=== PATIENT | female | born 1960 | race Caucasian/White ===

== ENCOUNTER 2017-07-23 17:57 | Inpatient (IN) | payer MEDICARE, MEDICAID ==
[2017-07-23] MEDS ORDERED: IPRATROPIUM/ALBUTEROL 0.5-2.5 MG/3 ML AMPUL NEB ONE ×2 (18:25→20:39)
[2017-07-23 18:34] LABS: HEMATOCRIT 35.9 % (36.0-47.0); HEMOGLOBIN 12.2 g/dL (12.0-15.5); MEAN CORPUSCULAR HEMOGLOBIN 33.7 pg (27.0-33.4); MEAN CORPUSCULAR HGB CONC 33.9 g/dL (32.0-36.0); MEAN CORPUSCULAR VOLUME 100 fl (80-97); PLATELET COUNT 216 10^3/uL (150-450); RED BLOOD COUNT 3.61 10^6/uL (3.72-5.28); RED CELL DISTRIBUTION WIDTH 13.4 % (11.5-14.0); WHITE BLOOD COUNT 27.7 10^3/uL (4.0-10.5)
--- NOTE | 2017-07-23 18:47 | ER Document Report ---
ED Respiratory Problem - General Chief Complaint: Shortness Of Breath Stated Complaint: RESPIRATORY DISTRESS Time Seen by Provider: 07/23/17 18:03 Mode of Arrival: Ambulatory Information source: Patient Notes: 57 years old female with a history of severe COPD, still smoking, presents today with difficulty in breathing and wheezing coughing largely dry cough. And having lower anterior chest wall pain on and off. Denies any fever chills, denies any other constitutional symptoms. TRAVEL OUTSIDE OF THE [place] IN LAST 30 DAYS: No - Related Data Allergies/Adverse Reactions: Penicillins Allergy (Severe, Verified 03/22/16 15:29) BREATHING DIFFICULTY Past Medical History - Social History Smoking Status: Current Every Day Smoker Family History: Reviewed & Not Pertinent Patient has suicidal ideation: No Patient has homicidal ideation: No - Past Medical History Cardiac Medical History: Denies: Hx Pulmonary Embolism Pulmonary Medical History: Reports: Hx COPD Denies: Hx Asthma, Hx Bronchitis, Hx Pneumonia, Hx Respiratory Failure, Hx Sleep Apnea, Hx Tuberculosis Neurological Medical History: Reports: Hx Seizures - last seizure approx 2.5 years ago (unknown etiology). Denies: Hx Cerebrovascular Accident Endocrine Medical History: Reports: Hx Hypothyroidism. Denies: Hx Graves' Disease, Hx Hyperthyroidism Renal/ Medical History: Denies: Hx Peritoneal Dialysis Malignancy Medical History: Denies: Hx Lung Cancer GI Medical History: Reports: Hx Gastroesophageal Reflux Disease - OTC meds PRN. Denies: Hx Crohn's Disease, Hx Hiatal Hernia, Hx Irritable Bowel, Hx Liver Failure, Hx Pancreatitis, Hx Ulcer Musculoskeltal Medical History: Reports Hx Arthritis, Denies Hx Fibromyalgia, Denies Hx Multiple Sclerosis, Denies Hx Muscular Dystrophy Psychiatric Medical History: Reports: Hx Bipolar Disorder - Dx'ed approx 4 years ago, Hx Depression - and anxiety Denies: Hx Dementia, Hx Post Traumatic Stress Disorder, Hx Schizophrenia Traumatic Medical History: Reports: Hx Fractures - LT wrist, cast application only Infectious Medical History: Denies: Hx HIV Past Surgical History: Reports: Hx Appendectomy - @ age [age] years old, Hx Hysterectomy - SHARIF BSO , Hx Orthopedic Surgery. Denies: Hx Bowel Surgery , Hx Section, Hx Cholecystectomy, Hx Colostomy, Hx Coronary Artery Bypass Graft, Hx Gastric Bypass Surgery, Hx Herniorrhaphy, Hx Mastectomy, Hx Pacemaker, Hx Tonsillectomy, Hx Tubal Ligation - Immunizations Hx Diphtheria, Pertussis, Tetanus Vaccination: No Hx Pneumococcal Vaccination: 10/16/11 Review of Systems - Review of Systems Notes: REVIEW OF SYSTEMS: CONSTITUTIONAL : Denies fever, chills, or sweats. Denies recent illness. EENT: Denies eye, ear, throat, or mouth pain or symptoms. Denies nasal or sinus congestion or discharge. Denies throat, tongue, or mouth swelling or difficulty swallowing. CARDIOVASCULAR: Denies chest pain. Denies palpitations or racing or irregular heart beat. Denies ankle edema. RESPIRATORY: GASTROINTESTINAL: Denies abdominal pain or distention. Denies nausea, vomiting , or diarrhea. Denies blood in vomitus, stools, or per rectum. Denies black, tarry stools. Denies constipation. GENITOURINARY: Denies difficulty urinating, painful urination, burning, frequency, blood in urine, or discharge. FEMALE GENITOURINARY: Denies vaginal bleeding, heavy or abnormal periods, irregular periods. Denies vaginal discharge or odor. MUSCULOSKELETAL: Denies back or neck pain or stiffness. Denies joint pain or swelling. SKIN: Denies rash, lesions or sores. HEMATOLOGIC : Denies easy bruising or bleeding. LYMPHATIC: Denies swollen, enlarged glands. NEUROLOGICAL: Denies confusion or altered mental status. Denies passing out or loss of consciousness. Denies dizziness or lightheadedness. Denies headache. Denies weakness or paralysis or loss of use of either side. Denies problems with gait or speech. Denies sensory loss, numbness, or tingling. Denies seizures. PSYCHIATRIC: Denies anxiety or stress. Denies depression, suicidal ideation, or homicidal ideation. ALL OTHER SYSTEMS REVIEWED AND NEGATIVE. PHYSICAL EXAMINATION: GENERAL: Appears much older than for her age, cachectic, Not in any major respiratory distress. HEAD: Atraumatic, normocephalic. EYES: Pupils equal round and reactive to light, extraocular movements intact, conjunctiva are normal. ENT: Nares patent, oropharynx clear without exudates. Moist mucous membranes. NECK: Normal range of motion, supple without lymphadenopathy LUNGS: Bilaterally decreased breath sounds, no obvious rales, but scattered mild wheezes throughout the lung gonzalez. HEART: Regular rate and rhythm without murmurs ABDOMEN: Soft, nontender, nondistended abdomen. No guarding, no rebound. No masses appreciated. Female : deferred Musculoskeletal: Normal range of motion, no pitting or edema. No cyanosis. NEUROLOGICAL: Cranial nerves grossly intact. Normal speech, normal gait. Normal sensory, motor exams PSYCH: Normal mood, normal affect. SKIN: Warm, Dry, normal turgor, no rashes or lesions noted. Dictation was performed using [employer] voice recognition software as per history of complain Physical Exam - Vital signs Vitals: Temp Pulse Resp BP Pulse Ox 98.6 F 110 H 22 H 114/72 94 07/23/17 18:05 07/23/17 18:05 07/23/17 18:05 07/23/17 18:05 07/23/17 18:05 Course - Re-evaluation Re-evalutation: 07/23/17 22:16 Lab report as well as x-ray report was reviewed with patient. Discussed with the hospitalist and currently being admitted for pneumonia and COPD exacerbation. - Vital Signs Vital signs: Temp Pulse Resp BP Pulse Ox 98.6 F 110 H 17 115/65 94 07/23/17 18:05 07/23/17 18:05 07/23/17 19:01 07/23/17 19:00 07/23/17 19:01 - Laboratory Result Diagrams: 07/23/17 18:14 07/23/17 18:14 Laboratory results interpreted by me: 07/23/17 07/23/17 18:14 18:14 WBC 27.7 H RBC 3.61 L Hct 35.9 L MCV 100 H MCH 33.7 H Seg Neuts % (Manual) 82 H Band Neutrophils % 13 H Lymphocytes % (Manual) 4 L Monocytes % (Manual) 1 L Abs Neuts (Manual) 26.3 H Sodium 133.0 L Potassium 3.2 L Carbon Dioxide 17 L Glucose 144 H Total Protein 5.5 L Albumin 2.9 L - EKG Interpretation by Wy EKG shows normal: Sinus rhythm Rate: Tachycardia - Sinus tach at 107 bpm normal axis no acute ST elevation ST depression T-wave inversion noted. Discharge - Discharge Clinical Impression: COPD exacerbation Pneumonia Qualifiers: Pneumonia type: due to unspecified organism Laterality: right Lung location: lower lobe of lung Qualified Code(s): J18.1 - Lobar pneumonia, unspecified organism Condition: Serious Disposition: ADMITTED INPATIENT Admitting Provider: Hospitalist Unit Admitted: IMCU Referrals: MEGHAN,GRICELDA, MD [Primary Care Provider] - Follow up as needed
[2017-07-23 18:48] LABS: ALANINE AMINOTRANSFERASE 26 U/L (9-52); ALBUMIN 2.9 g/dL (3.5-5.0); ALKALINE PHOSPHATASE 118 U/L (38-126); ANION GAP 12 (5-19); ASPARTATE AMINO TRANSFERASE 15 U/L (14-36); BILIRUBIN,DIRECT 0.3 mg/dL (0.0-0.4); BILIRUBIN,TOTAL 0.3 mg/dL (0.2-1.3); BLOOD UREA NITROGEN 19 mg/dL (7-20); CALCIUM 8.9 mg/dL (8.4-10.2); CARBON DIOXIDE 17 mmol/L (22-30); CHLORIDE 104 mmol/L (98-107); GLUCOSE 144 mg/dL (75-110); POTASSIUM 3.2 mmol/L (3.6-5.0); TOTAL PROTEIN 5.5 g/dL (6.3-8.2)
[2017-07-23 18:49] LABS: ABSOLUTE LYMPHOCYTES# (MANUAL) 1.1 10^3/uL (0.5-4.7); ABSOLUTE MONOCYTES # (MANUAL) 0.3 10^3/uL (0.1-1.4); ABSOLUTE NEUTROPHILS# (MANUAL) 26.3 10^3/uL (1.7-8.2); BASOPHILS % (MANUAL) 0 % (0-2); EOSINOPHILS % (MANUAL) 0 % (0-6); LYMPHOCYTES % (MANUAL) 4 % (13-45); MONOCYTES % (MANUAL) 1 % (3-13); SEGMENTED NEUTROPHILS % (MAN) 82 % (42-78); TOTAL CELLS COUNTED 100
[2017-07-23 18:51] LABS: PLATELET COMMENT ADEQUATE
[2017-07-23 18:52] LABS: BAND NEUTROPHILS % (MANUAL) 13 % (3-5)
[2017-07-23 19:00] LABS: NT PRO BNP 503 pg/mL (5-900)
[2017-07-23 19:01] LABS: CREATINE KINASE MB < 0.22 ng/mL (<4.55); TROPONIN I < 0.012 ng/mL
--- NOTE | 2017-07-23 19:23 | RADIOLOGY REPORT (SQ) ---
EXAM DESCRIPTION: CHEST SINGLE VIEW COMPLETED DATE/TIME: 07/23/2017 7:15 pm REASON FOR STUDY: SOB COMPARISON: 03/22/2016 EXAM PARAMETERS: NUMBER OF VIEWS: One view. TECHNIQUE: Single frontal radiographic view of the chest acquired. RADIATION DOSE: NA LIMITATIONS: None. FINDINGS: LUNGS AND PLEURA: Extensive opacity at the left base. Minimal opacity in the right upper lobe. Flattened hemidiaphragms. MEDIASTINUM AND HILAR STRUCTURES: No masses. Contour normal. HEART AND VASCULAR STRUCTURES: Heart normal in size. Normal vasculature. BONES: Scoliosis. HARDWARE: None OTHER: No other significant finding. IMPRESSION: Left lower lobe and right upper lobe pneumonia. TECHNICAL DOCUMENTATION: JOB ID: [id number] [employer]- All Rights Reserved
[2017-07-23] MEDS ORDERED: LEVOFLOXACIN 750 MG/D5W RTU 750 MG/150 ML RTUPB IV SCH (22:00)
--- NOTE | 2017-07-23 22:08 | EKG REPORT ---
SEVERITY:- ABNORMAL ECG - SINUS TACHYCARDIA MULTIPLE ATRIAL PREMATURE COMPLEXES CONSIDER LEFT VENTRICULAR HYPERTROPHY : Confirmed by: Marino Quinones 23-Jul-2017 22:07:37
[2017-07-23] MEDS ORDERED: CHLORPHENIRAMINE MALEATE 4 MG TABLET PO ONE (22:17)
[2017-07-23] MEDS ORDERED: IPRATROPIUM/ALBUTEROL 0.5-2.5 MG/3 ML AMPUL NEB PRN (22:17)
[2017-07-23] MEDS ORDERED: ACETAMINOPHEN 325 MG TABLET PO PRN (22:18)
[2017-07-23] MEDS ORDERED: DOCUSATE SODIUM 100 MG CAPSULE PO PRN (22:22)
[2017-07-23] MEDS ORDERED: CEFEPIME 2 GM/D5W RTU 50 ML IV SCH (22:30)
[2017-07-23] MEDS ORDERED: VANCOMYCIN HCL 1,000 MG in DEXTROSE 5%-WATER 250 ML IV ONE (22:45)
[2017-07-23] MEDS ORDERED: VANCOMYCIN HCL 0 MG in DEXTROSE 5%-WATER 250 ML IV NR (22:45)
[2017-07-23] MEDS ORDERED: FLUTICASONE NASAL SPRAY 50 MCG/SPRY 120 SPRAY/16 GM NASL ONE (23:00)
[2017-07-24] MEDS ORDERED: VANCOMYCIN HCL INJ 1000 MG VIAL ONE (00:26)
[2017-07-24] MEDS ORDERED: ONDANSETRON HCL INJ/PF 4 MG/2 ML SDV IV ONE (00:30)
[2017-07-24] MEDS: IPRATROPIUM/ALBUTEROL 0.5-2.5 MG/3 ML AMPUL NEB SCH ×4 (01:43→20:50)
[2017-07-24] MEDS: NORMAL SALINE 1000 ML 1,000 ML IV PRN ×3 (03:00→18:44)
--- NOTE | 2017-07-24 04:19 | RADIOLOGY REPORT (SQ) ---
EXAM DESCRIPTION: CT CHEST WITHOUT CONTRAST CLINICAL HISTORY: weight loss COMPARISON: Chest x-ray 07/23/2017 TECHNIQUE: CT of the chest without IV contrast. FINDINGS: Chest: Visualized thyroid gland is unremarkable. Great vessels have normal anatomic configuration. No cardiomegaly, pericardial effusion, or coronary artery atherosclerosis. No definite mediastinal lymphadenopathy. No abnormalities of visualized esophagus. Lung windows demonstrate centrilobular emphysematous changes. Left lower lobe consolidation and right upper lobe consolidation. Peripheral nodular opacities in the right lung base which are somewhat platelike likely representing atelectasis. Pleural thickening of the bilateral lung apices. There are scattered areas of groundglass and interstitial opacities involving the right lower lobe. No abnormalities of the visualized liver, spleen, kidneys, or adrenal glands. Degenerative change of the spine. DLP: 171.47 mGy-cm IMPRESSION: 1. Left basilar airspace consolidation concerning for pneumonia. Continued follow-up recommended to confirm resolution. 2. Scattered groundglass and interstitial opacities along the right upper lobe pleural surface and in the right lower lobe likely related to chronic interstitial lung disease. Follow-up CT in 6 months to document stability recommended. This exam was performed according to our departmental dose-optimization program, which includes automated exposure control, adjustment of the mA and/or kV according to patient size and/or use of iterative reconstruction technique.
[2017-07-24] MEDS ORDERED: POTASSI CL 20 MEQ/50 ML RIDER 20 MEQ/50 ML RTUPB IV SCH ×2 (04:45→08:30)
[2017-07-24 04:54] LABS: HEMATOCRIT 36.9 % (36.0-47.0); HEMOGLOBIN 12.6 g/dL (12.0-15.5); MEAN CORPUSCULAR HEMOGLOBIN 33.5 pg (27.0-33.4); MEAN CORPUSCULAR VOLUME 99 fl (80-97); PLATELET COUNT 214 10^3/uL (150-450); RED BLOOD COUNT 3.75 10^6/uL (3.72-5.28); RED CELL DISTRIBUTION WIDTH 13.9 % (11.5-14.0); WHITE BLOOD COUNT 29.5 10^3/uL (4.0-10.5)
[2017-07-24] MEDS ORDERED: INFLUENZA ADLT QUAD (36MOS+) 2017-18 VAC 0.5 ML SYR IM PRN (04:56)
[2017-07-24 05:14] LABS: ANION GAP 12 (5-19); BLOOD UREA NITROGEN 16 mg/dL (7-20); CALCIUM 9.3 mg/dL (8.4-10.2); CARBON DIOXIDE 22 mmol/L (22-30); CHLORIDE 105 mmol/L (98-107); GLUCOSE 137 mg/dL (75-110); POTASSIUM 3.3 mmol/L (3.6-5.0); SODIUM 138.7 mmol/L (137-145)
--- NOTE | 2017-07-24 05:40 | PDOC H&P ---
History of Present Illness Admission Date/PCP: 07/23/17 22:24 GRICELDA CHRISTIANSON MD Patient complains of: Runny nose, shortness of breath and cough History of Present Illness: HARPER DWYER is a 57 year old female with past medical history of COPD, bipolar depression, chronic pain, tobacco Dependence, and a 30 pound weight loss in 12 months. Patient presents with 48 hours of rhinorrhea and nonproductive cough severe shortness of breath and subjective fever. In the emergency room she is found to be severely tachypneic, toxic appearing with a chest x-ray of bilateral infiltrates and bandemia. She admits pleuritic chest pain, denies infectious contacts or recent change in medications. She receives empiric antibiotics and albuterol and referred to the hospitalist for admission. Past Medical History Cardiac Medical History: Denies: Pulmonary Embolism Pulmonary Medical History: Reports: Chronic Obstructive Pulmonary Disease (COPD) Denies: Asthma, Bronchitis, Pneumonia, Respiratory Failure, Sleep Apnea, Tuberculosis Neurological Medical History: Reports: Seizures - last seizure approx 2.5 years ago (unknown etiology) Endocrine Medical History: Reports: Hypothyroidism Denies: Hyperthyroidism Malignancy Medical History: Denies: Lung Cancer GI Medical History: Reports: Gastroesophageal Reflux Disease - OTC meds PRN Denies: Crohn's Disease, Hiatal Hernia Musculoskeltal Medical History: Reports: Arthritis Denies: Fibromyalgia Psychiatric Medical History: Reports: Bipolar Disorder - Dx'ed approx 4 years ago, Depression, Tobacco Dependency Denies: Dementia, Post Traumatic Stress Disorder Hematology: Reports: Anemia Denies: Hemophilia, Sickle Cell Disease Infectious Medical History: Denies: HIV Past Surgical History Past Surgical History: Reports: Appendectomy - @ age [age] years old, Hysterectomy - SHARIF BSO , Orthopedic Surgery Denies: Amputation, Section, Cholecystectomy, Colostomy, Coronary Artery Bypass Graft, Gastric Bypass Surgery, Herniorrhaphy, Mastectomy, Pacemaker, Tonsillectomy, Tubal Ligation Social History Information Source: Patient Lives with: Alone Smoking Status: Current Every Day Smoker Cigarettes Packs Per Day: 1 Number of Years Smokin Last Time Smoked: 20 jul 2017 Frequency of Alcohol Use: None Hx Recreational Drug Use: No Drugs: None Hx Prescription Drug Abuse: No - Advance Directive Resuscitation Status: Full Code Family History Family History: COPD, Hypertension Parental Family History Reviewed: Yes Children Family History Reviewed: Yes Sibling(s) Family History Reviewed.: Yes Medication/Allergy Home Medications: Alprazolam [Xanax 0.5 mg Tablet] 0.5 mg PO BIDP PRN 09/29/15 Buspirone HCl [Buspar 15 mg Tablet] 1 tab PO BID 09/29/15 Folic Acid/Vit B Complex and C [Dialyvite 800 Tablet] 1.6 mg PO QAM 09/29/15 Levothyroxine Sodium [Synthroid 0.025 mg Tablet] 25 mcg PO QAM 09/29/15 Benzonatate [Tessalon Perle 100 mg Capsule] 100 mg PO Q8HP PRN #40 cap 02/29/16 Docusate Sodium [Dulcolax Stool Softener] 100 mg PO BID PRN 03/22/16 Allergies/Adverse Reactions: Penicillins Allergy (Severe, Verified 03/22/16 15:29) BREATHING DIFFICULTY Review of Systems Constitutional: PRESENT: as per HPI, anorexia, chills, fatigue, fever(s), weakness, weight loss Eyes: ABSENT: visual disturbances Ears: ABSENT: hearing changes Cardiovascular: ABSENT: chest pain, dyspnea on exertion, edema, orthropnea, palpitations Respiratory: PRESENT: as per HPI, cough, dyspnea. ABSENT: hemoptysis, sputum Gastrointestinal: ABSENT: abdominal pain, constipation, diarrhea, hematemesis, hematochezia, nausea, vomiting Genitourinary: ABSENT: dysuria, hematuria Musculoskeletal: ABSENT: joint swelling Integumentary: ABSENT: rash, wounds Neurological: ABSENT: abnormal gait, abnormal speech, confusion, dizziness, focal weakness, syncope Psychiatric: PRESENT: anxiety, depression. ABSENT: hallucinations, homidical ideation, suicidal ideation Endocrine: PRESENT: cold intolerance. ABSENT: heat intolerance, polydipsia, polyuria Hematologic/Lymphatic: ABSENT: easy bleeding, easy bruising Physical Exam Vital Signs: Temp Pulse Resp BP Pulse Ox 98.0 F 89 20 116/64 91 L 07/24/17 02:35 07/24/17 02:35 07/24/17 02:35 07/24/17 02:35 07/24/17 02:35 Intake & Output 07/22/17 07/23/17 07/24/17 11:59 11:59 11:59 Weight 39.6 kg General appearance: PRESENT: cooperative, disheveled, mild distress, thin. ABSENT: well-developed, well-nourished Head exam: PRESENT: atraumatic, normocephalic Eye exam: PRESENT: conjunctiva pink, EOMI, PERRLA. ABSENT: scleral icterus Ear exam: PRESENT: normal external ear exam Mouth exam: PRESENT: moist, tongue midline Neck exam: ABSENT: carotid bruit, JVD, lymphadenopathy, thyromegaly Respiratory exam: PRESENT: accessory muscle use, crackles, prolonged expiratory phas, rales, retraction, symmetrical, tachypnea, wheezes. ABSENT: chest wall tenderness, clear to auscultation zahra Cardiovascular exam: PRESENT: RRR, tachycardia. ABSENT: diastolic murmur, rubs , systolic murmur Pulses: PRESENT: normal dorsalis pedis pul Vascular exam: PRESENT: normal capillary refill GI/Abdominal exam: PRESENT: normal bowel sounds, soft. ABSENT: distended, guarding, mass, organolmegaly, rebound, tenderness Rectal exam: PRESENT: deferred Extremities exam: PRESENT: full ROM. ABSENT: calf tenderness, clubbing, pedal edema Neurological exam: PRESENT: alert, awake, oriented to person, oriented to place , oriented to time, oriented to situation, CN II-XII grossly intact. ABSENT: motor sensory deficit Psychiatric exam: PRESENT: appropriate affect, normal mood. ABSENT: homicidal ideation, suicidal ideation Skin exam: PRESENT: dry, intact, warm. ABSENT: cyanosis, rash Results Laboratory Results: 07/24/17 04:36 07/24/17 07/24/17 07/24/17 04:36 04:36 04:36 Seg Neutrophils % Not Reportable Lymphocytes % Not Reportable Monocytes % Not Reportable Eosinophils % Not Reportable Basophils % Not Reportable Absolute Neutrophils Not Reportable Absolute Lymphocytes Not Reportable Absolute Monocytes Not Reportable Absolute Eosinophils Not Reportable Absolute Basophils Not Reportable Sodium 138.7 Potassium 3.3 L Chloride 105 Carbon Dioxide 22 Anion Gap 12 BUN 16 Creatinine 0.63 Est GFR ( Amer) > 60 Est GFR (Non-Af Amer) > 60 Glucose 137 H Lactic Acid 2.3 H Calcium 9.3 Impressions: Chest X-Ray 07/23/17 18:24 IMPRESSION: Left lower lobe and right upper lobe pneumonia. Chest CT 07/24/17 00:00 IMPRESSION: 1. Left basilar airspace consolidation concerning for pneumonia. Continued follow-up recommended to confirm resolution. 2. Scattered groundglass and interstitial opacities along the right upper lobe pleural surface and in the right lower lobe likely related to chronic interstitial lung disease. Follow-up CT in 6 months to document stability recommended. This exam was performed according to our departmental dose-optimization program, which includes automated exposure control, adjustment of the mA and/or kV according to patient size and/or use of iterative reconstruction technique. Assessment & Plan - Diagnosis (1) Pneumonia Qualifiers: Pneumonia type: due to unspecified organism Laterality: right Lung location: lower lobe of lung Qualified Code(s): J18.1 - Lobar pneumonia, unspecified organism Is this a current diagnosis for this admission?: Yes Plan: IMCU admission, complicated by acute sinusitis, pneumonia care set, empiric antibiotics, Flonase, chlorpheniramine, albuterol and Atrovent. Follow-up CBC in blood culture (2) COPD exacerbation Is this a current diagnosis for this admission?: Yes Plan: Albuterol and Atrovent, flutter valve and incentive spirometry (3) Weight loss Is this a current diagnosis for this admission?: Yes Plan: Remarkable cachexia with temporal wasting and prolonged tobacco exposure will obtain a CT chest (4) Tobacco dependency Is this a current diagnosis for this admission?: Yes Plan: Tobacco Dependence patient received tobacco cessation counseling and offered nicotine replacement options (5) Hypokalemia Is this a current diagnosis for this admission?: Yes Plan: Replace potassium, check magnesium and replete as needed - Time Time Spent: 50 to 70 Minutes - Inpatient Certification Medical Necessity: Need Close Monitoring Due to Risk of Patient Decompensation
[2017-07-24 06:21] LABS: ABSOLUTE LYMPHOCYTES# (MANUAL) 0.3 10^3/uL (0.5-4.7); ABSOLUTE MONOCYTES # (MANUAL) 0.3 10^3/uL (0.1-1.4); ABSOLUTE NEUTROPHILS# (MANUAL) 28.9 10^3/uL (1.7-8.2); BAND NEUTROPHILS % (MANUAL) 9 % (3-5); BASOPHILS % (MANUAL) 0 % (0-2); EOSINOPHILS % (MANUAL) 0 % (0-6); LYMPHOCYTES % (MANUAL) 1 % (13-45); MONOCYTES % (MANUAL) 1 % (3-13); POIKILOCYTOSIS SLIGHT; SEGMENTED NEUTROPHILS % (MAN) 89 % (42-78); TOTAL CELLS COUNTED 100; TOXIC GRANULATION SLIGHT
[2017-07-24 06:22] LABS: BURR CELLS SLIGHT; OVALOCYTES SLIGHT; PLATELET COMMENT ADEQUATE; SCHISTOCYTES SLIGHT; TEAR DROP CELLS SLIGHT
[2017-07-24] MEDS: LANSOPRAZOLE 30 MG TAB.RAP.DR PO SCH ×2 (06:29→18:38)
[2017-07-24] MEDS: HEPARIN SOD (PORCINE) 5,000 UNIT/ML 1 ML SYRINGE SUBCUT SCH ×3 (06:29→21:58)
[2017-07-24] MEDS: HYDROCODONE/ACETAMINOPHEN 5-325 MG TABLET PO PRN ×2 (06:29→18:39)
[2017-07-24] MEDS ORDERED: IPRATROPIUM/ALBUTEROL 0.5-2.5 MG/3 ML AMPUL NEB PRN (08:00)
[2017-07-24] MEDS ORDERED: LEVOTHYROXINE SODIUM 0.025 MG TABLET PO SCH (08:00)
[2017-07-24] MEDS: GUAIFENESIN SYRP 200 MG/10 ML UDC PO PRN (08:59)
[2017-07-24] MEDS ORDERED: BENZOCAINE/MENTHOL SORE THROAT LOZENGE BUCCAL PRN (10:15)
[2017-07-24] MEDS ORDERED: ALBUTEROL SULFATE 0.083% NEB 2.5 MG/3 ML AMPUL NEB PRN (10:15)
[2017-07-24] MEDS ORDERED: ONDANSETRON HCL INJ/PF 4 MG/2 ML SDV IV PRN (10:19)
--- NOTE | 2017-07-24 10:27 | Progress Note ---
Provider Note Provider Note: MOI SALE[facility] Search Criteria: Last Name 'Moi' and First Name 'Mary' and = '[birth year] ' and Request Period = 01/25/17' to 07/24/17' - 5 out of 5 Recipients Selected. Fill Date Product, Str, Form Qty Days Pt ID Prescriber Written RX# N/R* Pharm MED+ ------ ---- --------- --- ------- ----- --------- ------ 07/13/2017 PROMETHAZINE-CODEINE SYRUP 300.00 18 [id number] 05/15/2017 [id number] R [id number] 00.0 07/10/2017 HYDROCODONE-ACETAMIN 10-325 MG 150.00 25 [id number] 2016 [id number] N [id number] 60.0 07/10/2017 ALPRAZOLAM 1 MG TABLET 120.00 25 [id number] 03/15/2017 [id number] R [id number] 00.0 06/13/2017 HYDROCODONE-ACETAMIN 10-325 MG 150.00 25 [id number] 2016 [id number] N [id number] 60.0 06/12/2017 PROMETHAZINE-CODEINE SYRUP 300.00 18 [id number] 05/15/2017 [id number] R [id number] 00.0 06/12/2017 ALPRAZOLAM 1 MG TABLET 120.00 25 [id number] 03/15/2017 [id number] 00.0 05/15/2017 PROMETHAZINE-CODEINE SYRUP 300.00 18 [id number] 05/15/2017 [id number] N [id number] 00.0 05/15/2017 HYDROCODONE-ACETAMIN 10-325 MG 150.00 25 [id number] 2016 [id number] N [id number] 60.0 05/15/2017 ALPRAZOLAM 1 MG TABLET 120.00 25 [id number] 03/15/2017 [id number] R [id number] 00.0 04/18/2017 PROMETHAZINE-CODEINE SYRUP 300.00 18 [id number] 11/23/2016 [id number] R [id number] 00.0 04/13/2017 HYDROCODONE-ACETAMIN 10-325 MG 150.00 25 [id number] 2016 [id number] N [id number] 60.0 04/13/2017 ALPRAZOLAM 1 MG TABLET 120.00 30 [id number] 03/15/2017 [id number] N [id number] 00.0 03/15/2017 HYDROCODONE-ACETAMIN 10-325 MG 150.00 25 [id number] 2016 [id number] N [id number] 60.0 03/12/2017 ALPRAZOLAM 1 MG TABLET 100.00 25 [id number] 02/15/2017 [id number] R [id number] 00.0 03/12/2017 PROMETHAZINE-CODEINE SYRUP 300.00 18 [id number] 11/23/2016 [id number] R [id number] 00.0 02/20/2017 PROMETHAZINE-CODEINE SYRUP 300.00 18 [id number] 11/23/2016 [id number] R [id number] 00.0 02/15/2017 ALPRAZOLAM 1 MG TABLET 100.00 25 [id number] 02/15/2017 [id number] N [id number] 00.0 02/15/2017 HYDROCODONE-ACETAMIN 10-325 MG 120.00 30 [id number] 2016 [id number] N [id number] 40.0 [id number] JOVANNA CHRISTIANSON MD; [address] [facility] [address] Pharmacies that dispensed prescriptions listed [id number] [employer] [facility]; [address] [facility] [address],
[2017-07-24 11:05] LABS: PATH REVIEW PATHOLOGIST REVIEWED
--- NOTE | 2017-07-24 11:22 | PROGRESS NOTE E ---
Progress Note NAME: HARPER DWYER : 1960 AGE: 57Y DATE: 07/24/2017 ROOM: 309 SUBJECTIVE: The patient is currently lying in bed. The patient states that she feels better than when she came in. The patient although still not able to fully complete sentences, is not nearly short of breath as she was. The patient did have some nausea but did improve. She admits to a strong cough and sputum production and the patient does not voice any other concerns at this time. She does admit to her chronic back pain. REVIEW OF SYSTEMS: Rest of the review of systems is negative. MEDICATIONS: Medications have been reviewed. OBJECTIVE: GENERAL: The patient is a 57-year-old female who is awake and alert. She is oriented to person, place, time, situation. She is verbal and conversational and does not appear to be in any distressed. VITAL SIGNS: Temperature 98.5, pulse 96, respirations 22, blood pressure 130/74, oxygen saturation is 93% on 2 L nasal cannula. SKIN: Warm and dry, no rash, not diaphoretic. HEENT: Pupils equal, round, reactive to light and accommodation. Conjunctivae are pink. There is no JVP. CARDIOVASCULAR: Heart is regular. There is no murmur or rub. CHEST: Diminished, symmetrical, unlabored. ABDOMEN: Soft, nontender, nondistended. BACK: No CVA tenderness or sacral edema. EXTREMITIES: No clubbing, cyanosis or edema. PSYCHIATRIC: Appropriate. Pleasant mood. Odd affect. DIAGNOSTICS: Lab values are as follow: Hematology obtained on 07/24/2017: WBCs are 29.5, hemoglobin is 12.2, hematocrit is 36.5, platelet count is 214,000. Chemistry obtained on 07/24/2017: Sodium is 138, potassium 3.3, chloride is 105, carbon dioxide 22, BUN 16, creatinine is 0.63, glucose 137, calcium is 9.3. IMPRESSION AND PLAN: 1. MULTILOBULAR PNEUMONIA. Will continue broad-spectrum antibiotic coverage and obtain sputum specimen. We will add a flutter valve and Mucinex and follow. 2. HUGYA-ST-VYNQHOU HYPOXEMIC RESPIRATORY FAILURE. The patient will be weaned from O2. She is now currently on 2 L and does appear distressed, which overall is much improved. 3. CHRONIC OBSTRUCTIVE PULMONARY DISEASE EXACERBATION. The patient is not very tight at the moment. Will defer steroids for now but continue nebulizers. 4. SEPSIS SECONDARY TO #1. The patient's white count is about the same; however, her bands are improving. The patient's lactic acid is cleared and she appears to be moving in the right direction. 5. HYPOKALEMIA. This has been repleted. Will repeat chemistries in the a.m. and follow. 6. TOBACCO DEPENDENCY, CONTINUOUS. Spent 3 minutes discussing smoking cessation education. The patient declines any pharmacological intervention at this time but does agree to a p.r.n. nicotine patch. 7. BENZODIAZEPINE DEPENDENCY, CONTINUOUS. Will continue the patient's home dosage. 8. OPIATE DEPENDENCY, CONTINUOUS. Will continue the patient's home medications and follow. DISPOSITION: The patient is a FULL CODE. Pending patient's symptomatology and diagnostic findings, will reevaluate in the a.m. Time spent on this followup including assessment, plan, physical examination, patient education, and review of previous and current medical records is 35 minutes. DICTATING PHYSICIAN: JONATHAN SPENCER NP [id number] PHY#: [id number] ID: [id number] JOB#: [id number] ACCT: [id number] cc: >
[2017-07-24] MEDS: FLUTICASONE NASAL SPRAY 50 MCG/SPRY 120 SPRAY/16 GM NASL SCH ×2 (11:24→22:12)
[2017-07-24] MEDS: GUAIFENESIN 600 MG TABLET.SA PO SCH ×2 (11:24→21:58)
[2017-07-24] MEDS: VANCOMYCIN HCL 500 MG in DEXTROSE 5%-WATER 100 ML IV SCH ×2 (11:25→21:59)
[2017-07-24 12:14] LABS: ARTERIAL BLOOD BASE EXCESS -5.1 mmol/L; ARTERIAL BLOOD HCO3 18.4 mmol/L (20-26); ARTERIAL BLOOD O2 SATURATION 94.6 % (94-98); ARTERIAL BLOOD PCO2 29.8 mmHg (35-45); ARTERIAL BLOOD PH 7.41 (7.35-7.45); ARTERIAL BLOOD PO2 70.8 mmHg (80-100); ARTERIAL BLOOD TOTAL CO2 19.3 mmol/L (21-25)
[2017-07-24 12:20] LABS: ARTERIAL BLOOD FIO2 2L
[2017-07-24] MEDS: NICOTINE 21 MG/24 HR PATCH.TD24 TD PRN (13:35)
[2017-07-24] MEDS ORDERED: VIT B COMPLEX AND C PO SCH (18:00)
[2017-07-24] MEDS ORDERED: FOLIC ACID PO SCH (18:00)
[2017-07-24] MEDS: ALPRAZOLAM 0.5 MG TABLET PO PRN ×2 (18:36→21:59)
[2017-07-24] MEDS: FOLIC ACID/VITAMIN B COMP W-C CAPSULE PO SCH (18:38)
[2017-07-24] MEDS: LEVOFLOXACIN 750 MG/D5W RTU 750 MG/150 ML RTUPB IV SCH (18:38)
--- NOTE | 2017-07-24 19:01 | PDOC CONSULTATION ---
Consultation Consult Date: 07/24/17 Attending physician:: YING DACOSTA Consult reason:: pna/sepsis History of Present Illness Admission Date/PCP: 07/23/17 22:24 GRICELDA CHRISTIANSON MD History of Present Illness: HARPER DWYER is a 57 year old female with past medical history of COPD, bipolar depression, chronic pain, tobacco Dependence, and a 30 pound weight loss in 12 months.She has a hx of asthma since chilhood,She admits to exsposure to passive smoke as a child and adolescent.She >40 py hx of smoking has cats and dogs.She recently moved to [facility] from [facility] She also complains of of rhinorrhea and nonproductive cough severe shortness of breath and subjective fever. In the emergency room she is found to be severely tachypneic. She admits pleuritic chest pain, denies infectious contacts or recent change in medications. She denies anginal like-chest pain,sleeps 2 pillows frequent PND, nocturna.She snores admits to restless sleep nocturia unrestful sleep and excessive daytime somulence Past Medical History Cardiac Medical History: Denies: Pulmonary Embolism Pulmonary Medical History: Reports: Chronic Obstructive Pulmonary Disease (COPD) Denies: Asthma, Bronchitis, Pneumonia, Respiratory Failure, Sleep Apnea, Tuberculosis EENT Medical History: Denies: Ears, Nose Neurological Medical History: Reports: Migraine, Seizures - last seizure approx 2.5 years ago (unknown etiology) Denies: Multiple Sclerosis Endocrine Medical History: Reports: Hypothyroidism Denies: Gestational Diabetes, Hyperthyroidism Renal/ Medical History: Denies: Nephrolithiasis Malignancy Medical History: Reports: Skin Cancer Denies: Lung Cancer GI Medical History: Reports: Gastroesophageal Reflux Disease - OTC meds PRN Denies: Crohn's Disease, Hiatal Hernia, Ulcerative Colitis Musculoskeltal Medical History: Reports: Arthritis Denies: Fibromyalgia Skin Medical History: Reports: Psoriasis Psychiatric Medical History: Reports: Bipolar Disorder - Dx'ed approx 4 years ago, Depression, Tobacco Dependency Denies: Dementia, Post Traumatic Stress Disorder Traumatic Medical History: Denies: Traumatic Brain Injury Hematology: Reports: Anemia Denies: Hemophilia, Sickle Cell Disease, Bleeding Tendencies Infectious Medical History: Denies: Hepatitis B, Hepatitis C, HIV Past Surgical History Past Surgical History: Reports: Appendectomy - @ age [age] years old, Hysterectomy - [facility] B[facility] 1990's, Orthopedic Surgery Denies: Amputation, Section, Cholecystectomy, Colostomy, Coronary Artery Bypass Graft, Gastric Bypass Surgery, Herniorrhaphy, Mastectomy, Pacemaker, Tonsillectomy, Tubal Ligation Social History Information Source: Patient, Relative, [facility] Records Lives with: Alone Smoking Status: Current Every Day Smoker Cigarettes Packs Per Day: 1 Number of Years Smokin Last Time Smoked: 20 jul 2017 Passive smoke exposure as: Both Frequency of Alcohol Use: None Hx Recreational Drug Use: No Drugs: None Hx Prescription Drug Abuse: No Do you have pets?: Yes Have you had any respiratory illnesses as a child?: No Have you been exposed to any sick contacts recently?: No Have you had any recent respiratory illnesses?: No Have you travelled outside of [place] in the past 12 months?: Yes - Advance Directive Resuscitation Status: Full Code Family History Family History: COPD, Hyperlipidemia, Hypertension, Malignancy Parental Family History Reviewed: Yes Children Family History Reviewed: Yes Sibling(s) Family History Reviewed.: Yes Medication/Allergy Home Medications: Alprazolam [Xanax 0.5 mg Tablet] 0.5 mg PO Q6HP PRN 09/29/15 Levothyroxine Sodium [Synthroid 0.025 mg Tablet] 25 mcg PO Q6AM 09/29/15 Docusate Sodium [Dulcolax Stool Softener] 100 mg PO BID PRN 03/22/16 Albuterol Sulfate [Albuterol Sulfate 2.5mg/3 mL] 1 vial NEB QIDP PRN 07/24/17 Alprazolam [Xanax] 1 mg PO QHS 07/24/17 Fluoxetine HCl [Prozac] 40 mg PO DAILY 07/24/17 Folic Acid/Vit B Complex and C [Dialyvite Tablet] 1 tab PO BID 07/24/17 Oxycodone HCl/Acetaminophen [Percocet 10-325 mg Tablet] 1 tab PO Q6HP PRN Promethazine/Codeine/Albuterol 10 ml PO QHS 07/24/17 Promethazine/Codeine/Albuterol 10 ml PO TIDP PRN 07/24/17 Allergies/Adverse Reactions: Penicillins Allergy (Severe, Verified 03/22/16 15:29) BREATHING DIFFICULTY Review of Systems Constitutional: PRESENT: chills, fatigue, fever(s), headache(s), weight loss. ABSENT: anorexia, night sweats Eyes: ABSENT: visual disturbances Ears: ABSENT: hearing changes Nose, Mouth, and Throat: ABSENT: mouth pain, sore throat Cardiovascular: PRESENT: dyspnea on exertion, edema, orthropnea. ABSENT: chest pain, palpitations Respiratory: PRESENT: cough, dyspnea Gastrointestinal: PRESENT: abdominal pain, bloating, dysphagia, heartburn, melena, nausea. ABSENT: coffee ground emesis, diarrhea, hematemesis, hematochezia Genitourinary: PRESENT: nocturia. ABSENT: dysuria, hematuria Musculoskeletal: ABSENT: deformity, joint swelling Integumentary: ABSENT: pruritus, rash Neurological: PRESENT: convulsions. ABSENT: abnormal gait, abnormal movements, abnormal speech, confusion, focal weakness, frequent falls, memory loss Psychiatric: PRESENT: anxiety, depression. ABSENT: hallucinations, homidical ideation, suicidal ideation Endocrine: ABSENT: cold intolerance, heat intolerance, polydipsia, polyuria Physical Exam Vital Signs: Temp Pulse Resp BP Pulse Ox 98.5 F 90 15 130/74 H 93 07/24/17 07:20 07/24/17 08:35 07/24/17 08:35 07/24/17 07:20 07/24/17 08:35 Intake & Output 07/23/17 07/24/17 07/25/17 06:59 06:59 06:59 Intake Total 868 Output Total 0 Balance 868 Weight 39.6 kg General appearance: PRESENT: no acute distress, cooperative, disheveled, obese, well-developed. ABSENT: hard of hearing, mild distress, morbidly obese, severe distress, thin Head exam: PRESENT: atraumatic, normocephalic Eye exam: PRESENT: conjunctiva pale, EOMI. ABSENT: conjunctival injection, conjunctiva pink, nystagmus, periorbital swelling, scleral icterus Mouth exam: PRESENT: moist, neck supple, tongue midline Neck exam: ABSENT: carotid bruit, JVD, lymphadenopathy, thyromegaly, tracheal deviation, tracheostomy Respiratory exam: PRESENT: accessory muscle use, decreased breath sounds, prolonged expiratory phas, rhonchi, symmetrical, unlabored, wheezes. ABSENT: chest wall tenderness, clear to auscultation zahra, crackles, rales, retraction, stridor, tachypnea Cardiovascular exam: PRESENT: irregular rhythm, RRR, +S1, +S2 Pulses: PRESENT: normal radial pulses GI/Abdominal exam: PRESENT: normal bowel sounds, soft. ABSENT: distended, guarding, mass, organolmegaly, rebound, tenderness Extremities exam: ABSENT: clubbing, joint swelling Musculoskeletal exam: ABSENT: deformity, dislocation Neurological exam: PRESENT: alert, awake Psychiatric exam: PRESENT: normal mood Skin exam: PRESENT: dry, warm Results Laboratory Results: 07/24/17 04:36 07/24/17 04:36 07/24/17 07/24/17 07/24/17 04:36 04:36 04:36 WBC 29.5 H RBC 3.75 Hgb 12.6 Hct 36.9 MCV 99 H MCH 33.5 H MCHC 34.0 RDW 13.9 Plt Count 214 Seg Neutrophils % Not Reportable Lymphocytes % Not Reportable Monocytes % Not Reportable Eosinophils % Not Reportable Basophils % Not Reportable Absolute Neutrophils Not Reportable Absolute Lymphocytes Not Reportable Absolute Monocytes Not Reportable Absolute Eosinophils Not Reportable Absolute Basophils Not Reportable Sodium 138.7 Potassium 3.3 L Chloride 105 Carbon Dioxide 22 Anion Gap 12 BUN 16 Creatinine 0.63 Est GFR ( Amer) > 60 Est GFR (Non-Af Amer) > 60 Glucose 137 H Lactic Acid 2.3 H Calcium 9.3 07/24/17 09:03 WBC RBC Hgb Hct MCV MCH MCHC RDW Plt Count Seg Neutrophils % Lymphocytes % Monocytes % Eosinophils % Basophils % Absolute Neutrophils Absolute Lymphocytes Absolute Monocytes Absolute Eosinophils Absolute Basophils Sodium Potassium Chloride Carbon Dioxide Anion Gap BUN Creatinine Est GFR ( Amer) Est GFR (Non-Af Amer) Glucose Lactic Acid 1.9 Calcium Impressions: Chest X-Ray 07/23/17 18:24 IMPRESSION: Left lower lobe and right upper lobe pneumonia. Chest CT 07/24/17 00:00 IMPRESSION: 1. Left basilar airspace consolidation concerning for pneumonia. Continued follow-up recommended to confirm resolution. 2. Scattered groundglass and interstitial opacities along the right upper lobe pleural surface and in the right lower lobe likely related to chronic interstitial lung disease. Follow-up CT in 6 months to document stability recommended. This exam was performed according to our departmental dose-optimization program, which includes automated exposure control, adjustment of the mA and/or kV according to patient size and/or use of iterative reconstruction technique. Assessment & Plan - Diagnosis (1) GERD with apnea Is this a current diagnosis for this admission?: Yes Plan: ppi+mod ba swallow+ reverse tredelenberg (2) Somnolence, daytime, controlled Is this a current diagnosis for this admission?: Yes Plan: sleep study needed (3) COPD exacerbation Is this a current diagnosis for this admission?: Yes Plan: Generic Name Dose Route Start Last Admin Trade Name Freq PRN Reason Stop Dose Admin Aripiprazole 10 mg 07/24/17 22:00 Abilify 5 Mg Tablet PO 08/23/17 21:59 QHS KANNAN Nicotine 1 each 07/24/17 10:25 07/24/17 13:35 Nicoderm 21 Mg/24 Hr Transderm Patch TD 08/23/17 10:24 1 each DAILYP PRN Albuterol/Ipratropium 3 ml 07/24/17 02:00 07/24/17 14:11 Duoneb 3 Ml Ampul NEB 08/23/17 01:59 3 ml RTQ6 KANNAN Albuterol 2.5 mg 07/24/17 10:15 Ventolin 0.083% Neb 2.5 Mg/3 Ml Ampul NEB 08/23/17 10:14 RTQ6HP PRN Guaifenesin 200 mg 07/23/17 22:18 07/24/17 08:59 Robitussin Syrup 200 Mg/10 Ml Ud Cup PO 08/22/17 22:17 200 mg Q4HP PRN COUGH Montelukast Sodium 10 mg 07/24/17 22:00 Singulair 10 Mg Tablet PO 08/23/17 21:59 QHS [facility] (4) Tobacco dependency Is this a current diagnosis for this admission?: Yes Plan: transdermal nicotine (5) Pneumonia Qualifiers: Pneumonia type: due to unspecified organism Laterality: bilateral Lung location: lower lobe of lung Qualified Code(s): J18.9 - Pneumonia, unspecified organism Is this a current diagnosis for this admission?: Yes Plan: WBC no + cultures thus far
[2017-07-24] MEDS ORDERED: BENZONATATE 100 MG CAPSULE PO ONE (19:30)
[2017-07-24 19:43] LABS: APPEARANCE,URINE CLOUDY; BILIRUBIN,URINE NEGATIVE (NEGATIVE); COLOR,URINE YELLOW; GLUCOSE, URINE NEGATIVE (NEGATIVE); KETONES,URINE NEGATIVE (NEGATIVE); LEUKOCYTE ESTERASE,URINE NEGATIVE (NEGATIVE); NITRITE,URINE NEGATIVE (NEGATIVE); PROTEIN,URINE 100 mg/dL (NEGATIVE); URINE SPECIFIC GRAVITY 1.026
[2017-07-24] MEDS: BUDESONIDE NEB 0.5 MG/2 ML AMPUL NEB SCH (20:50)
[2017-07-24] MEDS: ARIPIPRAZOLE 5 MG TABLET PO SCH (21:58)
[2017-07-24] MEDS: MONTELUKAST SODIUM 10 MG TABLET PO SCH (21:58)
[2017-07-24] MEDS: ALPRAZOLAM 0.5 MG TABLET PO SCH (22:12)
[2017-07-24] MEDS: BENZONATATE 100 MG CAPSULE PO SCH (22:12)
[2017-07-25] MEDS: IPRATROPIUM/ALBUTEROL 0.5-2.5 MG/3 ML AMPUL NEB SCH ×4 (01:36→20:45)
[2017-07-25] MEDS: HYDROCODONE/ACETAMINOPHEN 5-325 MG TABLET PO PRN (02:55)
[2017-07-25 05:08] LABS: HEMATOCRIT 34.4 % (36.0-47.0); HEMOGLOBIN 11.6 g/dL (12.0-15.5); MEAN CORPUSCULAR HEMOGLOBIN 33.1 pg (27.0-33.4); MEAN CORPUSCULAR HGB CONC 33.6 g/dL (32.0-36.0); MEAN CORPUSCULAR VOLUME 99 fl (80-97); PLATELET COUNT 205 10^3/uL (150-450); RED BLOOD COUNT 3.49 10^6/uL (3.72-5.28); RED CELL DISTRIBUTION WIDTH 13.8 % (11.5-14.0); WHITE BLOOD COUNT 16.6 10^3/uL (4.0-10.5)
[2017-07-25 05:30] LABS: ANION GAP 8 (5-19); BLOOD UREA NITROGEN 13 mg/dL (7-20); CALCIUM 8.6 mg/dL (8.4-10.2); CARBON DIOXIDE 21 mmol/L (22-30); CHLORIDE 107 mmol/L (98-107); GLUCOSE 87 mg/dL (75-110); MAGNESIUM 1.8 mg/dL (1.6-2.3); POTASSIUM 3.7 mmol/L (3.6-5.0); SODIUM 136.3 mmol/L (137-145)
[2017-07-25 05:41] LABS: ABSOLUTE LYMPHOCYTES# (MANUAL) 0.2 10^3/uL (0.5-4.7); ABSOLUTE MONOCYTES # (MANUAL) 0.7 10^3/uL (0.1-1.4); ABSOLUTE NEUTROPHILS# (MANUAL) 15.8 10^3/uL (1.7-8.2); BASOPHILS % (MANUAL) 0 % (0-2); EOSINOPHILS % (MANUAL) 0 % (0-6); LYMPHOCYTES % (MANUAL) 1 % (13-45); MONOCYTES % (MANUAL) 4 % (3-13); SEGMENTED NEUTROPHILS % (MAN) 95 % (42-78); TOTAL CELLS COUNTED 100
[2017-07-25 05:44] LABS: OVALOCYTES SLIGHT; PLATELET CLUMPS PRESENT; PLATELET COMMENT ADEQUATE; POIKILOCYTOSIS SLIGHT; TARGET CELLS SLIGHT; TOXIC GRANULATION SLIGHT
[2017-07-25] MEDS: LANSOPRAZOLE 30 MG TAB.RAP.DR PO SCH ×2 (06:57→18:04)
[2017-07-25] MEDS: HEPARIN SOD (PORCINE) 5,000 UNIT/ML 1 ML SYRINGE SUBCUT SCH ×3 (06:57→21:03)
[2017-07-25] MEDS: BENZONATATE 100 MG CAPSULE PO SCH ×3 (06:57→21:02)
[2017-07-25] MEDS: LEVOTHYROXINE SODIUM 0.025 MG TABLET PO SCH (06:58)
[2017-07-25] MEDS: BUDESONIDE NEB 0.5 MG/2 ML AMPUL NEB SCH ×2 (08:04→20:45)
[2017-07-25] MEDS: GUAIFENESIN 600 MG TABLET.SA PO SCH ×2 (10:36→21:03)
[2017-07-25] MEDS: FLUOXETINE HCL 20 MG CAPSULE PO SCH (10:36)
[2017-07-25] MEDS: VANCOMYCIN HCL 500 MG in DEXTROSE 5%-WATER 100 ML IV SCH (10:37)
[2017-07-25] MEDS: FOLIC ACID/VITAMIN B COMP W-C CAPSULE PO SCH ×2 (10:37→18:02)
[2017-07-25] MEDS: FLUTICASONE NASAL SPRAY 50 MCG/SPRY 120 SPRAY/16 GM NASL SCH ×2 (10:38→21:05)
[2017-07-25 10:49] LABS: VANCOMYCIN,TROUGH < 5.0 ug/mL (5.0-20.0)
--- NOTE | 2017-07-25 11:29 | PDOC PROGRESS REPORT ---
Subjective Progress Note for:: 07/25/17 Subjective:: Resting comfortably Reason For Visit: SEPSIS, PNEUMONIA, COPD EXACERBATION, WEIGHT LOSS Physical Exam Vital Signs: Temp Pulse Resp BP Pulse Ox 98.8 F 101 H 20 141/85 H 93 07/25/17 07:39 07/25/17 08:04 07/25/17 08:04 07/25/17 07:39 07/25/17 08:04 Intake & Output 07/24/17 07/25/17 07/26/17 06:59 06:59 06:59 Intake Total 868 3969 Output Total 0 200 Balance 868 3769 Weight 39.6 kg General appearance: PRESENT: no acute distress, disheveled, thin. ABSENT: mild distress, morbidly obese, obese, severe distress Head exam: PRESENT: atraumatic, normocephalic Eye exam: PRESENT: conjunctiva pale, EOMI. ABSENT: conjunctival injection, conjunctiva pink, nystagmus, periorbital swelling, scleral icterus Mouth exam: PRESENT: dry mucosa, neck supple, tongue midline. ABSENT: laceration, moist Neck exam: ABSENT: carotid bruit, JVD, lymphadenopathy, thyromegaly, tracheal deviation, tracheostomy Respiratory exam: PRESENT: decreased breath sounds, prolonged expiratory phas, rales, rhonchi, symmetrical, unlabored, wheezes. ABSENT: accessory muscle use, chest wall tenderness, clear to auscultation zahra, crackles, retraction, stridor , tachypnea Cardiovascular exam: PRESENT: RRR, +S1, +S2. ABSENT: rubs Pulses: PRESENT: normal radial pulses GI/Abdominal exam: PRESENT: normal bowel sounds, soft. ABSENT: distended, guarding, mass, organolmegaly, rebound, tenderness Extremities exam: ABSENT: clubbing, joint swelling Musculoskeletal exam: ABSENT: deformity, dislocation Skin exam: PRESENT: dry, warm Results Laboratory Results: 07/25/17 04:44 07/25/17 04:44 07/24/17 07/24/17 07/24/17 09:03 11:50 18:22 WBC RBC Hgb Hct MCV MCH MCHC RDW Plt Count Seg Neutrophils % Lymphocytes % Monocytes % Eosinophils % Basophils % Absolute Neutrophils Absolute Lymphocytes Absolute Monocytes Absolute Eosinophils Absolute Basophils Carbonic Acid 0.90 L HCO3/H2CO3 Ratio 20:1 ABG pH 7.41 ABG pCO2 29.8 L ABG pO2 70.8 L ABG HCO3 18.4 L ABG O2 Saturation 94.6 ABG Base Excess -5.1 FiO2 2L Sodium Potassium Chloride Carbon Dioxide Anion Gap BUN Creatinine Est GFR ( Amer) Est GFR (Non-Af Amer) Glucose Lactic Acid 1.9 Calcium Magnesium Urine Color YELLOW Urine Appearance CLOUDY Urine pH 5.0 Ur Specific [place] 1.026 Urine Protein 100 H Urine Glucose (UA) NEGATIVE Urine Ketones NEGATIVE Urine Blood NEGATIVE Urine Nitrite NEGATIVE Ur Leukocyte Esterase NEGATIVE Urine WBC (Auto) 3 Urine RBC (Auto) 1 07/25/17 07/25/17 04:44 04:44 WBC 16.6 H RBC 3.49 L Hgb 11.6 L Hct 34.4 L MCV 99 H MCH 33.1 MCHC 33.6 RDW 13.8 Plt Count 205 Seg Neutrophils % Not Reportable Lymphocytes % Not Reportable Monocytes % Not Reportable Eosinophils % Not Reportable Basophils % Not Reportable Absolute Neutrophils Not Reportable Absolute Lymphocytes Not Reportable Absolute Monocytes Not Reportable Absolute Eosinophils Not Reportable Absolute Basophils Not Reportable Carbonic Acid HCO3/H2CO3 Ratio ABG pH ABG pCO2 ABG pO2 ABG HCO3 ABG O2 Saturation ABG Base Excess FiO2 Sodium 136.3 L Potassium 3.7 Chloride 107 Carbon Dioxide 21 L Anion Gap 8 BUN 13 Creatinine 0.67 Est GFR ( Amer) > 60 Est GFR (Non-Af Amer) > 60 Glucose 87 Lactic Acid Calcium 8.6 Magnesium 1.8 Urine Color Urine Appearance Urine pH Ur Specific [place] Urine Protein Urine Glucose (UA) Urine Ketones Urine Blood Urine Nitrite Ur Leukocyte Esterase Urine WBC (Auto) Urine RBC (Auto) Impressions: Chest X-Ray 07/23/17 18:24 IMPRESSION: Left lower lobe and right upper lobe pneumonia. Chest CT 07/24/17 00:00 IMPRESSION: 1. Left basilar airspace consolidation concerning for pneumonia. Continued follow-up recommended to confirm resolution. 2. Scattered groundglass and interstitial opacities along the right upper lobe pleural surface and in the right lower lobe likely related to chronic interstitial lung disease. Follow-up CT in 6 months to document stability recommended. This exam was performed according to our departmental dose-optimization program, which includes automated exposure control, adjustment of the mA and/or kV according to patient size and/or use of iterative reconstruction technique. Assessment & Plan - Diagnosis (1) GERD with apnea Is this a current diagnosis for this admission?: Yes Plan: ppi+mod ba swallow+ reverse tredelenberg (2) Somnolence, daytime, controlled Is this a current diagnosis for this admission?: Yes Plan: sleep study needed (3) COPD exacerbation Is this a current diagnosis for this admission?: Yes Plan: Generic Name Dose Route Start Last Admin Trade Name Freq PRN Reason Stop Dose Admin Aripiprazole 10 mg 07/24/17 22:00 Abilify 5 Mg Tablet PO 08/23/17 21:59 QHS KANNAN Nicotine 1 each 07/24/17 10:25 07/24/17 13:35 Nicoderm 21 Mg/24 Hr Transderm Patch TD 08/23/17 10:24 1 each DAILYP PRN Albuterol/Ipratropium 3 ml 07/24/17 02:00 07/24/17 14:11 Duoneb 3 Ml Ampul NEB 08/23/17 01:59 3 ml RTQ6 KANNAN Albuterol 2.5 mg 07/24/17 10:15 Ventolin 0.083% Neb 2.5 Mg/3 Ml Ampul NEB 08/23/17 10:14 RTQ6HP PRN Guaifenesin 200 mg 07/23/17 22:18 07/24/17 08:59 Robitussin Syrup 200 Mg/10 Ml Ud Cup PO 08/22/17 22:17 200 mg Q4HP PRN COUGH Montelukast Sodium 10 mg 07/24/17 22:00 Singulair 10 Mg Tablet PO 08/23/17 21:59 QHS [facility] (4) Tobacco dependency Is this a current diagnosis for this admission?: Yes Plan: transdermal nicotine (5) Pneumonia Qualifiers: Pneumonia type: due to unspecified organism Laterality: bilateral Lung location: lower lobe of lung Qualified Code(s): J18.9 - Pneumonia, unspecified organism Is this a current diagnosis for this admission?: Yes Plan: WBC no + cultures thus far
--- NOTE | 2017-07-25 12:11 | ST Inp Modified Barium Swallow ---
Medical Diagnosis - Medical Diagnoses Medical Diagnosis Description & ICD-10 Code(s): pneumonia [place] [facility] [place]: 07[place]25/17 - History History Obtained From: Other - EMR -: Medical - per EMR: COPD, bipolar depression, chronic pain, tobacco dependence , 30 lb weight loss in 12 months. Medications: Medications Reviewed Allergies: Refer to medical record - Subjective Current Nutritional Means: PO Current PO Diet: Regular Current Symptoms: Weight loss, Pneumonia Pain: Patient reports - chest pain, unable to quantify - Objective Assessment: Upright, Left Lateral - Food Trials Food Trials Used: Thin liquids, Pureed, Regular The Patient: Was Able to Self Feed - Assessment Labial Function: Within Normal Limits Lingual Function: Within Normal Limits Mandibular Function: Within Normal Limits Dentition: Partial - Pharyngeal Stage Initiation of Pharyngeal Stage: Normal Decreased Laryngeal Elevation: No Reduced Velo-Pharyngeal Closure: no Reduced Pressure Generation: No Reduced Tongue Base Retraction: No Pre-Swallowing Pooling in Valleculae: None Pre-Swallowing Pooling in Pyriforms: None Reduced Thyro-Hyiod Approximation: No Reduced Epiglottic Excursion: No Reduced Pharyngeal Peristalsis: No Post Swallow Residuals in Valleculae: None Post Swallow Residuals in Pyriforms: Mild - possibly due to reflux Pahryngeal Stage Comments: Timely swallow reflex with good pharyngeal constriction seen. - Esophageal Stage Esophageal Stage Comments: Signs of possible reflux symptoms resulting in material in pyriform sinus post swallow. - Impression/Summary Laryngeal Penetration: No Tracheal Aspiration: no Patient Presents With: Normal swallow at eval Risk of Aspiration: Minimal - Recommendations Solid Diet Recommendations: Mechanical Soft, Chopped Meat - due to dentition Liquid Diet Recommendations: Thin Strict Aspitarion Precautions: Yes Dysphagia Therapy with DATA EXAMINATION CLERK: No Recommended Techniques: Fully Upright During Meal, Small Bites and Sips Other Recommendations: Reflux precautions - Time Total Time: 15 Total Timed Minutes: 15 Charge G Code? - - -: Yes ST F.L. Impairment Category - Rationale Based On Rationale Based On: Func. Asses. Tool Results - Swallowing Current G8996: CH 0% Impaired Goal G8997: CH 0% Impaired Discharge G8998: CH 0% Impaired
[2017-07-25] MEDS ORDERED: (PENDING PHARMACY ID) (Oxycodone Hcl/Acetaminophen [Percocet 10-325 Mg Tablet] 1 TAB) PO PRN (14:20)
--- NOTE | 2017-07-25 14:39 | RADIOLOGY REPORT (SQ) ---
EXAM DESCRIPTION: CHILO SWALLOW COMPLETED DATE/TIME: 07/25/2017 9:54 am REASON FOR STUDY: dysphagia COMPARISON: None. TECHNIQUE: Videofluoroscopic swallowing examination was performed in conjunction with speech patholo gy. Videofluoroscopic imaging was obtained and reviewed and these are the findings: RADIATION DOSE: 2 minutes 1 second of fluoroscopy was used. 1 images saved to PACS. LIMITATIONS: None FINDINGS: The patient was brought into the fluoro room and placed upright on a modified barium swall ow chair. The patient was then given multiple consistencies mixed with barium to swallow under live fluoroscopic video guidance. According to the Speech Pathologist there was no penetration or aspirat ion. Mild esophageal dysmotility. IMPRESSION: NO EVIDENCE OF PENETRATION OR ASPIRATION. PLEASE SEE SPEECH PATHOLOGIST REPORT FOR OTHE R FINDINGS AND RECOMMENDATIONS. COMMENT: Quality ID [id number]: Final reports for procedures using fluoroscopy that document radiation exp osure indices, or exposure time and number of fluorographic images (if radiation exposure indices are not available) TECHNICAL DOCUMENTATION: JOB ID: [id number] [employer]- All Rights Reserved
--- NOTE | 2017-07-25 14:58 | PROGRESS NOTE E ---
Progress Note NAME: HARPER DWYER : 1960 AGE: 57Y DATE: 07/25/2017 ROOM: 309 SUBJECTIVE: The patient is currently lying in bed. She states she does feel better than when she came in yesterday. The patient denies any nausea, vomiting, diarrhea. Her shortness of breath has improved. The patient is able to fully complete sentences without issue. The patient has been up in her room some and has also had a swallow study, and the patient does not voice any other concerns at this time. REVIEW OF SYSTEMS: Rest of review of systems negative. MEDICATIONS: Medications have been reviewed. OBJECTIVE: GENERAL: The patient is a 57-year-old female who is awake, alert, and oriented to person, place, time, and situation. She is verbal, conversational, does not appear to be distressed. VITAL SIGNS: Temperature is 98.8, pulse 101, respirations 18, blood pressure 141/85, oxygen saturation 91% on 2 L nasal cannula. SKIN: Warm and dry. No rash. She is not diaphoretic. HEENT: Pupils equal, round, and reactive to light and accommodation. Conjunctiva is pink. There is no evidence of JVP. CARDIOVASCULAR SYSTEM: Heart is regular. There is no murmur or rub. CHEST: Diminished, symmetrical with expiratory wheezes, but overall improved in comparison to yesterday. ABDOMEN: Soft, nontender, nondistended. BACK: No CVA tenderness or sacral edema. EXTREMITIES: No clubbing, cyanosis, edema. PSYCHIATRIC: Appropriate affect. Pleasant mood. DIAGNOSTICS: Lab values are as follows: Hematology obtained on 07/25/2017: WBCs are 16.6, hemoglobin is 11.0, hematocrit is 34.0, platelet count is 205,000. Chemistry obtained on 07/25/2017: Sodium is 136, potassium 3.7, chloride is 107, carbon dioxide 21, BUN 13, creatinine is 0.67, glucose 87, calcium is 8.6, magnesium is 1.8. IMPRESSION AND PLAN: 1. MULTILOBULAR PNEUMONIA. Will continue broad-spectrum antibiotic coverage for now. Culture has remained no growth at this time. Will continue with flutter valve, Mucinex, follow. 2. ACUTE ON CHRONIC HYPOXEMIC RESPIRATORY FAILURE. The patient has been weaned down to just 1 L at this time. She does not appear distressed, overall much improved. 3. CHRONIC OBSTRUCTIVE PULMONARY DISEASE EXACERBATION. The patient sounds much improved in comparison to yesterday. Therefore, will continue to defer steroids. 4. SEPSIS SECONDARY TO NUMBER 1. The patient is no longer making lactate. White count overall has improved. Bandemia is resolved. 5. HYPOKALEMIA. This has been repleted. 6. TOBACCO DEPENDENCY, CONTINUOUS. Continue p.r.n. nicotine patch. 7. BENZODIAZEPINE DEPENDENCY, CONTINUOUS. Will continue the patient's home dosages. 8. OPIATE DEPENDENCY, CONTINUOUS. The patient would like her home medications again. DISPOSITION: The patient is a FULL CODE. Pending patient's symptomatology and diagnostic findings, will re-evaluate in the a.m. Time spent on this followup including assessment, plan, physical examination, patient education, and review of records, specialty collaboration is 25 minutes. DICTATING PHYSICIAN: JONATHAN SPENCER NP [id number] PHY#: [id number] ID: [id number] JOB#: [id number] ACCT: [id number] cc: >
--- NOTE | 2017-07-25 15:25 | Physician Advisory Note ---
Physician Advisor ProgressNote .: [facility] I have reviewed the medical record for this patient. Physician Advisor Statement: Pt presented w/O2 sats high 80s on RA for EMS & ED, then 91% on 3L O2, accessory muscle use documented on H&P. This nicely supports dx of Acute Respiratory Failure, if she does not normally need O2. Please consider documenting, if you agree: 1. Findings that support dx of "Chronic Respiratory Failure" - does pt usually use O2 at baseline? If so, how much? Or is this dx ruled out? 2. Please clarify- Does attending believe pt had: A. sepsis, present on adm, due to pneumonia, evidenced by ____? (If so, please document the specific criteria by which the dx was made in progress note & in DCSummary), or B. possible sepsis, ruled out? Discussion: Sepsis-2 criteria = 2 or more of following, must include 1 of 1st 2: T> 100.4, WBC>12, HR>90, RR>20. Sepsis-3 criteria = acute increase of 2+ SOFA points: total GCS<15, MAP <70, P/F ratio <400, plts <150, Cr 1.2+, total bili 1.2+. *Sepsis is important to document when present, but has become over-called at times & is a target for denials. - When making this dx, we need to give the specific supporting evidence. - When pt meets some sepsis criteria but clinically not felt to be septic, we should say that sepsis was considered but ruled out. In this case, the pt had high lactate level -? due to sepsis or due to the pneumonia/respiratory failure? Thanks! CK
[2017-07-25] MEDS ORDERED: VANCOMYCIN HCL 750 MG in DEXTROSE 5%-WATER 250 ML IV SCH (18:00)
[2017-07-25] MEDS: LEVOFLOXACIN 750 MG/D5W RTU 750 MG/150 ML RTUPB IV SCH (18:04)
[2017-07-25] MEDS: OXYCODONE-ACETAMINOPHEN 5-325 MG TABLET PO PRN (19:54)
[2017-07-25] MEDS: OXYCODONE HCL IR 5 MG TABLET PO PRN (19:55)
[2017-07-25] MEDS: MONTELUKAST SODIUM 10 MG TABLET PO SCH (21:03)
[2017-07-25] MEDS: ARIPIPRAZOLE 5 MG TABLET PO SCH (21:05)
[2017-07-25] MEDS: VANCOMYCIN HCL 750 MG in DEXTROSE 5%-WATER 250 ML IV SCH (21:11)
[2017-07-26] MEDS: ALPRAZOLAM 0.5 MG TABLET PO SCH (01:05)
[2017-07-26] MEDS: IPRATROPIUM/ALBUTEROL 0.5-2.5 MG/3 ML AMPUL NEB SCH ×4 (02:17→19:59)
[2017-07-26 05:02] LABS: ABSOLUTE LYMPHOCYTES (AUTO) 0.5 10^3/uL (0.5-4.7); ABSOLUTE MONOCYTES (AUTO) 0.6 10^3/uL (0.1-1.4); ABSOLUTE NEUT (AUTO) 5.2 10^3/uL (1.7-8.2); BASOPHILS % (AUTO) 0.4 % (0-2); EOSINOPHILS % (AUTO) 0.2 % (0-6); HEMATOCRIT 33.7 % (36.0-47.0); HEMOGLOBIN 11.4 g/dL (12.0-15.5); LYMPHOCYTES % (AUTO) 8.4 % (13-45); MEAN CORPUSCULAR HEMOGLOBIN 33.3 pg (27.0-33.4); MEAN CORPUSCULAR HGB CONC 33.7 g/dL (32.0-36.0); MEAN CORPUSCULAR VOLUME 99 fl (80-97); MONOCYTES % (AUTO) 9.3 % (3-13); PLATELET COUNT 214 10^3/uL (150-450); RED CELL DISTRIBUTION WIDTH 14.1 % (11.5-14.0); SEGMENTED NEUTROPHILS % (AUTO) 81.7 % (42-78); TOTAL CELLS COUNTED % (AUTO) 100 %; WHITE BLOOD COUNT 6.3 10^3/uL (4.0-10.5)
[2017-07-26] MEDS: LANSOPRAZOLE 30 MG TAB.RAP.DR PO SCH ×2 (05:12→17:33)
[2017-07-26] MEDS: LEVOTHYROXINE SODIUM 0.025 MG TABLET PO SCH (05:12)
[2017-07-26] MEDS: HEPARIN SOD (PORCINE) 5,000 UNIT/ML 1 ML SYRINGE SUBCUT SCH ×3 (05:13→21:42)
[2017-07-26] MEDS: BENZONATATE 100 MG CAPSULE PO SCH ×3 (05:13→21:44)
[2017-07-26] MEDS: VANCOMYCIN HCL 750 MG in DEXTROSE 5%-WATER 250 ML IV SCH ×3 (05:18→21:41)
[2017-07-26 05:27] LABS: ANION GAP 9 (5-19); BLOOD UREA NITROGEN 9 mg/dL (7-20); CALCIUM 8.4 mg/dL (8.4-10.2); CARBON DIOXIDE 23 mmol/L (22-30); CHLORIDE 104 mmol/L (98-107); GLUCOSE 89 mg/dL (75-110); POTASSIUM 3.4 mmol/L (3.6-5.0); SODIUM 135.8 mmol/L (137-145)
[2017-07-26] MEDS: BUDESONIDE NEB 0.5 MG/2 ML AMPUL NEB SCH ×2 (08:02→19:59)
[2017-07-26] MEDS: FOLIC ACID/VITAMIN B COMP W-C CAPSULE PO SCH ×2 (09:44→17:33)
[2017-07-26] MEDS: GUAIFENESIN 600 MG TABLET.SA PO SCH ×2 (09:44→21:42)
[2017-07-26] MEDS: FLUOXETINE HCL 20 MG CAPSULE PO SCH (09:44)
[2017-07-26] MEDS: FLUTICASONE NASAL SPRAY 50 MCG/SPRY 120 SPRAY/16 GM NASL SCH ×2 (09:45→21:44)
[2017-07-26] MEDS ORDERED: POTASSIUM CHLORIDE 10 MEQ TABLET.SA PO ONE (10:54)
[2017-07-26] MEDS: OXYCODONE-ACETAMINOPHEN 5-325 MG TABLET PO PRN ×2 (11:52→21:47)
--- NOTE | 2017-07-26 12:08 | PROGRESS NOTE E ---
Progress Note NAME: HARPER DWYER : 1960 AGE: 57Y DATE: 07/26/2017 ROOM: 309 SUBJECTIVE: The patient is currently lying in bed. She states that she does feel a little better today in comparison to yesterday. The patient still has a strong cough and is producing a good amount of sputum. The patient has been afebrile. Her blood pressures have been in a good range. Discussed with the patient about her sleepiness. Yesterday the patient had asked that her home pain medication as well as Xanax be resumed. Did discuss reservations regarding opiate and benzodiazepine use and the patient stated that she feels the benzodiazepines have made her sleepier than they normally do, therefore, will decrease dosage. Patient does not voice any other concerns at this time. REVIEW OF SYSTEMS: Rest of the review of systems negative. MEDICATIONS: Have been reviewed. OBJECTIVE: GENERAL: The patient is a 57-year-old female who is awake, alert, and oriented to person, place, time, and situation. She is verbal, conversational, and does not appear to be in any acute distress. VITAL SIGNS: Temperature is 97.9, pulse 95, respirations 20, blood pressure 125/73, oxygen saturation is 96% on 4 L nasal cannula. SKIN: Warm and dry. No rash. She is not diaphoretic. HEENT: Pupils equal, round, reactive to light and accommodation. Conjunctivae are pink. There is no JVP. CARDIOVASCULAR: Heart is regular. There is no murmur or rub. CHEST: The patient does have rhonchus breath sounds noted in right upper lung field. ABDOMEN: Soft, nontender, nondistended. EXTREMITIES: No clubbing, cyanosis, edema. PSYCHIATRIC: Delayed affect. DIAGNOSTICS: Lab values are as follows: Hematology obtained on 07/26/2017: WBCs are 6.3, hemoglobin is 11.4, hematocrit is 33.7, platelet count is 214,000. Chemistry obtained on 07/26/2017: Sodium is 135, potassium 3.4, chloride is 104, carbon dioxide 23, BUN 9, creatinine is 0.49, glucose 89, calcium is 8.4. IMPRESSION AND PLAN: 1. MULTILOBULAR PNEUMONIA. Will continue broad spectrum coverage for now. The patient's repeat chest x-ray is pending. Overall the patient clinically has appeared to have improved. Her culture did not show any growth. Will continue flutter valve and Mucinex and follow. 2. IQZWH-TY-CMAAMER HYPOXEMIC RESPIRATORY FAILURE. The patient had been weaned down to just 1 L. Today she is requiring a little more. Again, I am concerned about the amount of benzodiazepines and opiates she takes. Will decrease benzodiazepines. 3. CHRONIC OBSTRUCTIVE PULMONARY DISEASE EXACERBATION. Overall the patient is much improved, therefore, did defer steroids. 4. SEPSIS SECONDARY TO #1. The patient is no longer making lactate. Her white count overall has improved. Bandemia has resolved. 5. HYPOKALEMIA. This has been repleted. 6. TOBACCO DEPENDENCY, CONTINUOUS. Will continue p.r.n. nicotine patch. 7. BENZODIAZEPINE DEPENDENCY, CONTINUOUS. Have decreased home dosages. 8. OPIATE DEPENDENCY, CONTINUOUS. Continue home doses. DISPOSITION: The patient is a FULL CODE. Pending patient's symptomatology and diagnostic findings, will reevaluate in the a.m. Time spent on this followup including assessment, plan, physical examination, patient education, review of records, and specialty collaboration is 25 minutes. DICTATING PHYSICIAN: JONATHAN SPENCER NP [id number] PHY#: [id number] ID: [id number] JOB#: [id number] ACCT: [id number] cc: >
--- NOTE | 2017-07-26 12:49 | PDOC PROGRESS REPORT ---
Subjective Progress Note for:: 07/26/17 Subjective:: I feel better with do you think Reason For Visit: SEPSIS, PNEUMONIA, COPD EXACERBATION, WEIGHT LOSS Physical Exam Vital Signs: Temp Pulse Resp BP Pulse Ox 97.9 F 95 20 125/73 96 07/26/17 08:21 07/26/17 08:21 07/26/17 08:21 07/26/17 08:21 07/26/17 08:21 Intake & Output 07/25/17 07/26/17 07/27/17 06:59 06:59 06:59 Intake Total 3969 1588 Output Total 200 Balance 3769 1588 Weight 40 kg General appearance: PRESENT: no acute distress, cooperative, disheveled, thin. ABSENT: mild distress, morbidly obese, obese, severe distress Head exam: PRESENT: atraumatic, normocephalic Eye exam: PRESENT: conjunctiva pale, EOMI Mouth exam: PRESENT: dry mucosa, neck supple, tongue midline Neck exam: ABSENT: carotid bruit, JVD, lymphadenopathy, thyromegaly, tracheal deviation, tracheostomy Respiratory exam: PRESENT: decreased breath sounds, prolonged expiratory phas, rales, rhonchi, symmetrical, unlabored, wheezes. ABSENT: accessory muscle use, chest wall tenderness, clear to auscultation zahra, crackles, retraction, stridor , tachypnea Cardiovascular exam: PRESENT: RRR, +S1, +S2 Pulses: PRESENT: normal radial pulses GI/Abdominal exam: PRESENT: normal bowel sounds, soft. ABSENT: distended, guarding, mass, organolmegaly, rebound, tenderness Extremities exam: ABSENT: clubbing, joint swelling Musculoskeletal exam: ABSENT: deformity, dislocation Neurological exam: PRESENT: alert, awake Psychiatric exam: PRESENT: normal mood Skin exam: PRESENT: dry, warm Results Laboratory Results: 07/26/17 04:20 07/26/17 04:20 07/26/17 07/26/17 04:20 04:20 WBC 6.3 RBC 3.40 L Hgb 11.4 L Hct 33.7 L MCV 99 H MCH 33.3 MCHC 33.7 RDW 14.1 H Plt Count 214 Seg Neutrophils % 81.7 H Lymphocytes % 8.4 L Monocytes % 9.3 Eosinophils % 0.2 Basophils % 0.4 Absolute Neutrophils 5.2 Absolute Lymphocytes 0.5 Absolute Monocytes 0.6 Absolute Eosinophils 0.0 Absolute Basophils 0.0 Sodium 135.8 L Potassium 3.4 L Chloride 104 Carbon Dioxide 23 Anion Gap 9 BUN 9 Creatinine 0.49 L Est GFR ( Amer) > 60 Est GFR (Non-Af Amer) > 60 Glucose 89 Calcium 8.4 07/24/17 14:25 Sputum Gram Stain - Final 07/24/17 14:25 Sputum Sputum Culture - Final C.albicans/C.dubliniensis Normal Demetria Impressions: Chest X-Ray 07/23/17 18:24 IMPRESSION: Left lower lobe and right upper lobe pneumonia. Chest CT 07/24/17 00:00 IMPRESSION: 1. Left basilar airspace consolidation concerning for pneumonia. Continued follow-up recommended to confirm resolution. 2. Scattered groundglass and interstitial opacities along the right upper lobe pleural surface and in the right lower lobe likely related to chronic interstitial lung disease. Follow-up CT in 6 months to document stability recommended. This exam was performed according to our departmental dose-optimization program, which includes automated exposure control, adjustment of the mA and/or kV according to patient size and/or use of iterative reconstruction technique. Modified Barium Swallow 07/25/17 00:00 IMPRESSION: NO EVIDENCE OF PENETRATION OR ASPIRATION. PLEASE SEE SPEECH PATHOLOGIST REPORT FOR OTHER FINDINGS AND RECOMMENDATIONS. Assessment & Plan - Diagnosis (1) GERD with apnea Is this a current diagnosis for this admission?: Yes Plan: ppi+mod ba swallow+ reverse tredelenberg (2) Somnolence, daytime, controlled Is this a current diagnosis for this admission?: Yes Plan: sleep study needed (3) COPD exacerbation Is this a current diagnosis for this admission?: Yes Plan: increased breath sounds over the last 24 hours (4) Tobacco dependency Is this a current diagnosis for this admission?: Yes Plan: transdermal nicotine (5) Pneumonia Qualifiers: Pneumonia type: due to unspecified organism Laterality: bilateral Lung location: lower lobe of lung Qualified Code(s): J18.9 - Pneumonia, unspecified organism Is this a current diagnosis for this admission?: Yes Plan: WBC no + cultures thus far,Chest x-ray improved the right upper lobe left lower lobe persistent effusion and PNA
--- NOTE | 2017-07-26 14:05 | RADIOLOGY REPORT (SQ) ---
EXAM DESCRIPTION: CHEST PA/LAT COMPLETED DATE/TIME: 07/26/2017 1:53 pm REASON FOR STUDY: FU pNA COMPARISON: 07/23/2017. EXAM PARAMETERS: NUMBER OF VIEWS: two views TECHNIQUE: Digital Frontal and Lateral radiographic views of the chest acquired. RADIATION DOSE: NA LIMITATIONS: none FINDINGS: LUNGS AND PLEURA: Hyperinflation. Chronic scarring. Faint right upper lobe infiltrate herrera s improved. Left lower lobe infiltrate unchanged or slightly worsened with increase in the left pleu ral effusion. Possible small right pleural effusion. MEDIASTINUM AND HILAR STRUCTURES: No masses or contour abnormalities. HEART AND VASCULAR STRUCTURES: Heart normal size. No evidence for failure. BONES: No acute findings. Degenerative changes in the spine with scoliosis. HARDWARE: None in the chest. OTHER: No other significant finding. IMPRESSION: COPD. IMPROVEMENT IN THE RIGHT UPPER LOBE INFILTRATE. LEFT LOWER LOBE INFILTRATE APPEA RS SLIGHTLY WORSENED AND THERE IS INCREASE IN PLEURAL EFFUSIONS. TECHNICAL DOCUMENTATION: JOB ID: [id number] [employer]- All Rights Reserved
[2017-07-26] MEDS: LEVOFLOXACIN 750 MG/D5W RTU 750 MG/150 ML RTUPB IV SCH (17:33)
[2017-07-26] MEDS: GUAIFENESIN SYRP 200 MG/10 ML UDC PO PRN (20:28)
[2017-07-26] MEDS: MONTELUKAST SODIUM 10 MG TABLET PO SCH (21:42)
[2017-07-26] MEDS: ARIPIPRAZOLE 5 MG TABLET PO SCH (21:45)
[2017-07-26] MEDS: ALPRAZOLAM 0.5 MG TABLET PO PRN (21:46)
[2017-07-26] MEDS: OXYCODONE HCL IR 5 MG TABLET PO PRN (21:48)
[2017-07-26 22:19] LABS: VANCOMYCIN,TROUGH 11.8 ug/mL (5.0-20.0)
[2017-07-27] MEDS: IPRATROPIUM/ALBUTEROL 0.5-2.5 MG/3 ML AMPUL NEB SCH ×4 (02:13→19:42)
[2017-07-27 05:03] LABS: ABSOLUTE LYMPHOCYTES (AUTO) 0.8 10^3/uL (0.5-4.7); ABSOLUTE MONOCYTES (AUTO) 0.6 10^3/uL (0.1-1.4); ABSOLUTE NEUT (AUTO) 3.1 10^3/uL (1.7-8.2); BASOPHILS % (AUTO) 0.8 % (0-2); EOSINOPHILS % (AUTO) 1.1 % (0-6); HEMOGLOBIN 10.9 g/dL (12.0-15.5); LYMPHOCYTES % (AUTO) 17.6 % (13-45); MEAN CORPUSCULAR HEMOGLOBIN 33.5 pg (27.0-33.4); MEAN CORPUSCULAR HGB CONC 34.2 g/dL (32.0-36.0); MEAN CORPUSCULAR VOLUME 98 fl (80-97); MONOCYTES % (AUTO) 12.6 % (3-13); PLATELET COUNT 224 10^3/uL (150-450); RED BLOOD COUNT 3.27 10^6/uL (3.72-5.28); RED CELL DISTRIBUTION WIDTH 14.1 % (11.5-14.0); SEGMENTED NEUTROPHILS % (AUTO) 67.9 % (42-78); TOTAL CELLS COUNTED % (AUTO) 100 %; WHITE BLOOD COUNT 4.5 10^3/uL (4.0-10.5)
[2017-07-27] MEDS: LANSOPRAZOLE 30 MG TAB.RAP.DR PO SCH ×2 (05:07→17:19)
[2017-07-27] MEDS: LEVOTHYROXINE SODIUM 0.025 MG TABLET PO SCH (05:07)
[2017-07-27] MEDS: BENZONATATE 100 MG CAPSULE PO SCH ×3 (05:07→21:51)
[2017-07-27] MEDS: HEPARIN SOD (PORCINE) 5,000 UNIT/ML 1 ML SYRINGE SUBCUT SCH ×3 (05:07→21:53)
[2017-07-27] MEDS: VANCOMYCIN HCL 750 MG in DEXTROSE 5%-WATER 250 ML IV SCH ×3 (05:09→21:55)
[2017-07-27 05:18] LABS: ALANINE AMINOTRANSFERASE 46 U/L (9-52); ALBUMIN 2.4 g/dL (3.5-5.0); ALKALINE PHOSPHATASE 93 U/L (38-126); ANION GAP 7 (5-19); ASPARTATE AMINO TRANSFERASE 37 U/L (14-36); BILIRUBIN,DIRECT 0.2 mg/dL (0.0-0.4); BILIRUBIN,TOTAL 0.3 mg/dL (0.2-1.3); BLOOD UREA NITROGEN 8 mg/dL (7-20); CALCIUM 8.7 mg/dL (8.4-10.2); CARBON DIOXIDE 27 mmol/L (22-30); CHLORIDE 105 mmol/L (98-107); GLUCOSE 92 mg/dL (75-110); POTASSIUM 3.7 mmol/L (3.6-5.0); SODIUM 139.2 mmol/L (137-145); TOTAL PROTEIN 4.9 g/dL (6.3-8.2)
[2017-07-27] MEDS: BUDESONIDE NEB 0.5 MG/2 ML AMPUL NEB SCH ×2 (08:12→19:43)
[2017-07-27] MEDS: FLUOXETINE HCL 20 MG CAPSULE PO SCH (09:29)
[2017-07-27] MEDS: FOLIC ACID/VITAMIN B COMP W-C CAPSULE PO SCH ×2 (09:29→17:19)
[2017-07-27] MEDS: GUAIFENESIN 600 MG TABLET.SA PO SCH ×2 (09:30→21:49)
[2017-07-27] MEDS: FLUTICASONE NASAL SPRAY 50 MCG/SPRY 120 SPRAY/16 GM NASL SCH ×2 (09:30→21:52)
[2017-07-27] MEDS: OXYCODONE-ACETAMINOPHEN 5-325 MG TABLET PO PRN (13:44)
--- NOTE | 2017-07-27 16:00 | PDOC PROGRESS REPORT ---
Subjective Progress Note for:: 07/27/17 Subjective:: Patient seen in bed nurse states she Millo confused today. She was alert and oriented 3 for me. Patient is very thin, frail, anxious. Reason For Visit: SEPSIS, PNEUMONIA, COPD EXACERBATION, WEIGHT LOSS Physical Exam Vital Signs: Temp Pulse Resp BP Pulse Ox 98.0 F 100 22 H 150/85 H 93 07/27/17 11:28 07/27/17 14:00 07/27/17 13:37 07/27/17 11:28 07/27/17 13:37 Intake & Output 07/26/17 07/27/17 07/28/17 06:59 06:59 06:59 Intake Total 1588 1715 200 Balance 1588 1715 200 Weight 40 kg General appearance: PRESENT: no acute distress, thin Head exam: PRESENT: atraumatic, normocephalic Eye exam: PRESENT: conjunctiva pink, EOMI, PERRLA. ABSENT: scleral icterus Ear exam: PRESENT: normal external ear exam Mouth exam: PRESENT: moist, tongue midline Neck exam: ABSENT: carotid bruit, JVD, lymphadenopathy, thyromegaly Respiratory exam: PRESENT: accessory muscle use, chest wall tenderness, decreased breath sounds, prolonged expiratory phas, rhonchi, unlabored, wheezes. ABSENT: rales Cardiovascular exam: PRESENT: RRR. ABSENT: diastolic murmur, rubs, systolic murmur Pulses: PRESENT: normal dorsalis pedis pul Vascular exam: PRESENT: normal capillary refill GI/Abdominal exam: PRESENT: normal bowel sounds, soft. ABSENT: distended, guarding, mass, organolmegaly, rebound, tenderness Rectal exam: PRESENT: deferred Extremities exam: PRESENT: full ROM. ABSENT: calf tenderness, clubbing, pedal edema Musculoskeletal exam: PRESENT: ambulatory Neurological exam: PRESENT: alert, awake, oriented to person, oriented to place , oriented to time, oriented to situation. ABSENT: motor sensory deficit Psychiatric exam: PRESENT: anxious, appropriate affect, normal mood. ABSENT: homicidal ideation, suicidal ideation Skin exam: PRESENT: dry, intact, warm. ABSENT: cyanosis, rash Results Laboratory Results: 07/27/17 04:09 07/27/17 04:39 07/27/17 07/27/17 04:09 04:39 WBC 4.5 RBC 3.27 L Hgb 10.9 L Hct 32.0 L MCV 98 H MCH 33.5 H MCHC 34.2 RDW 14.1 H Plt Count 224 Seg Neutrophils % 67.9 Lymphocytes % 17.6 Monocytes % 12.6 Eosinophils % 1.1 Basophils % 0.8 Absolute Neutrophils 3.1 Absolute Lymphocytes 0.8 Absolute Monocytes 0.6 Absolute Eosinophils 0.0 Absolute Basophils 0.0 Sodium 139.2 Potassium 3.7 Chloride 105 Carbon Dioxide 27 Anion Gap 7 BUN 8 Creatinine 0.50 L Est GFR ( Amer) > 60 Est GFR (Non-Af Amer) > 60 Glucose 92 Calcium 8.7 Total Bilirubin 0.3 AST 37 H ALT 46 Alkaline Phosphatase 93 Total Protein 4.9 L Albumin 2.4 L 07/24/17 14:25 Sputum Gram Stain - Final 07/24/17 14:25 Sputum Sputum Culture - Final C.albicans/C.dubliniensis Normal Demetria Impressions: Chest CT 07/24/17 00:00 IMPRESSION: 1. Left basilar airspace consolidation concerning for pneumonia. Continued follow-up recommended to confirm resolution. 2. Scattered groundglass and interstitial opacities along the right upper lobe pleural surface and in the right lower lobe likely related to chronic interstitial lung disease. Follow-up CT in 6 months to document stability recommended. This exam was performed according to our departmental dose-optimization program, which includes automated exposure control, adjustment of the mA and/or kV according to patient size and/or use of iterative reconstruction technique. Modified Barium Swallow 07/25/17 00:00 IMPRESSION: NO EVIDENCE OF PENETRATION OR ASPIRATION. PLEASE SEE SPEECH PATHOLOGIST REPORT FOR OTHER FINDINGS AND RECOMMENDATIONS. Chest X-Ray 07/26/17 00:00 IMPRESSION: COPD. IMPROVEMENT IN THE RIGHT UPPER LOBE INFILTRATE. LEFT LOWER LOBE INFILTRATE APPEARS SLIGHTLY WORSENED AND THERE IS INCREASE IN PLEURAL EFFUSIONS. Assessment & Plan - Diagnosis (1) COPD exacerbation Is this a current diagnosis for this admission?: Yes (2) Pneumonia Qualifiers: Pneumonia type: due to unspecified organism Laterality: bilateral Lung location: lower lobe of lung Qualified Code(s): J18.9 - Pneumonia, unspecified organism Is this a current diagnosis for this admission?: Yes (3) Tobacco dependency Is this a current diagnosis for this admission?: Yes (4) Weight loss Is this a current diagnosis for this admission?: Yes
[2017-07-27] MEDS: LEVOFLOXACIN 750 MG/D5W RTU 750 MG/150 ML RTUPB IV SCH (17:19)
[2017-07-27] MEDS: ALPRAZOLAM 0.5 MG TABLET PO PRN (21:46)
[2017-07-27] MEDS: ARIPIPRAZOLE 5 MG TABLET PO SCH (21:48)
[2017-07-27] MEDS: MONTELUKAST SODIUM 10 MG TABLET PO SCH (21:50)
[2017-07-28] MEDS: IPRATROPIUM/ALBUTEROL 0.5-2.5 MG/3 ML AMPUL NEB SCH ×4 (02:24→20:22)
[2017-07-28] MEDS: BENZONATATE 100 MG CAPSULE PO SCH ×3 (05:18→21:55)
[2017-07-28] MEDS: LANSOPRAZOLE 30 MG TAB.RAP.DR PO SCH ×2 (05:18→17:21)
[2017-07-28] MEDS: LEVOTHYROXINE SODIUM 0.025 MG TABLET PO SCH (05:18)
[2017-07-28] MEDS: OXYCODONE HCL IR 5 MG TABLET PO PRN ×2 (05:19→13:30)
[2017-07-28] MEDS: HEPARIN SOD (PORCINE) 5,000 UNIT/ML 1 ML SYRINGE SUBCUT SCH ×3 (05:20→21:51)
[2017-07-28] MEDS: VANCOMYCIN HCL 750 MG in DEXTROSE 5%-WATER 250 ML IV SCH ×3 (05:24→22:00)
[2017-07-28] MEDS: BUDESONIDE NEB 0.5 MG/2 ML AMPUL NEB SCH ×2 (08:02→20:22)
[2017-07-28] MEDS: GUAIFENESIN 600 MG TABLET.SA PO SCH ×2 (09:43→21:56)
[2017-07-28] MEDS: FOLIC ACID/VITAMIN B COMP W-C CAPSULE PO SCH ×2 (09:44→17:21)
[2017-07-28] MEDS: FLUTICASONE NASAL SPRAY 50 MCG/SPRY 120 SPRAY/16 GM NASL SCH ×2 (09:44→21:57)
[2017-07-28] MEDS: FLUOXETINE HCL 20 MG CAPSULE PO SCH (09:44)
--- NOTE | 2017-07-28 13:28 | PDOC PROGRESS REPORT ---
Subjective Progress Note for:: 07/28/17 Subjective:: Patient seen in bed nurse states she Millo confused today. She was alert and oriented 3 for me. Patient is very thin, frail, anxious. Looks better today but looks older than her stated age. Reason For Visit: SEPSIS, PNEUMONIA, COPD EXACERBATION, WEIGHT LOSS Physical Exam Vital Signs: Temp Pulse Resp BP Pulse Ox 99.3 F 89 20 129/68 H 95 07/28/17 11:19 07/28/17 11:19 07/28/17 11:19 07/28/17 11:19 07/28/17 11:19 Intake & Output 07/27/17 07/28/17 07/29/17 06:59 06:59 06:59 Intake Total 1715 1658 Balance 1715 1658 Weight 43.3 kg General appearance: PRESENT: no acute distress, thin, well-developed Head exam: PRESENT: atraumatic, normocephalic Eye exam: PRESENT: conjunctiva pink, EOMI, PERRLA. ABSENT: scleral icterus Ear exam: PRESENT: normal external ear exam Mouth exam: PRESENT: moist, tongue midline Neck exam: ABSENT: carotid bruit, JVD, lymphadenopathy, thyromegaly Respiratory exam: PRESENT: chest wall tenderness, decreased breath sounds, rhonchi, wheezes. ABSENT: rales Cardiovascular exam: PRESENT: RRR. ABSENT: diastolic murmur, rubs, systolic murmur Pulses: PRESENT: normal dorsalis pedis pul Vascular exam: PRESENT: normal capillary refill GI/Abdominal exam: PRESENT: normal bowel sounds, soft. ABSENT: distended, guarding, mass, organolmegaly, rebound, tenderness Rectal exam: PRESENT: deferred Extremities exam: PRESENT: full ROM. ABSENT: calf tenderness, clubbing, pedal edema Neurological exam: PRESENT: alert, awake, oriented to person, oriented to place , oriented to time, oriented to situation, CN II-XII grossly intact. ABSENT: motor sensory deficit Psychiatric exam: PRESENT: appropriate affect, normal mood. ABSENT: homicidal ideation, suicidal ideation Skin exam: PRESENT: dry, intact, warm. ABSENT: cyanosis, rash Results Laboratory Results: 07/27/17 04:09 07/27/17 04:39 Impressions: Chest CT 07/24/17 00:00 IMPRESSION: 1. Left basilar airspace consolidation concerning for pneumonia. Continued follow-up recommended to confirm resolution. 2. Scattered groundglass and interstitial opacities along the right upper lobe pleural surface and in the right lower lobe likely related to chronic interstitial lung disease. Follow-up CT in 6 months to document stability recommended. This exam was performed according to our departmental dose-optimization program, which includes automated exposure control, adjustment of the mA and/or kV according to patient size and/or use of iterative reconstruction technique. Modified Barium Swallow 07/25/17 00:00 IMPRESSION: NO EVIDENCE OF PENETRATION OR ASPIRATION. PLEASE SEE SPEECH PATHOLOGIST REPORT FOR OTHER FINDINGS AND RECOMMENDATIONS. Chest X-Ray 07/26/17 00:00 IMPRESSION: COPD. IMPROVEMENT IN THE RIGHT UPPER LOBE INFILTRATE. LEFT LOWER LOBE INFILTRATE APPEARS SLIGHTLY WORSENED AND THERE IS INCREASE IN PLEURAL EFFUSIONS. Assessment & Plan - Diagnosis (1) COPD exacerbation Plan: Patient seen sitting up on side bed eating much acute distress. Patient states she is ready to quit smoking now and want to use her patches. Encourage to quit. Patient currently does not have any home O2 will evaluate and assess for need for home oxygen. Continue IV antibiotics (2) Pneumonia Qualifiers: Pneumonia type: due to unspecified organism Laterality: bilateral Lung location: lower lobe of lung Qualified Code(s): J18.9 - Pneumonia, unspecified organism Is this a current diagnosis for this admission?: Yes Plan: Patient is currently getting IV antibiotics, steroids, nebulizers. Supplemental O2 comfort (3) Tobacco dependency Is this a current diagnosis for this admission?: Yes Plan: Encourage smoking cessation and patient wants to continue using patches outpatient after discharge. (4) Weight loss Is this a current diagnosis for this admission?: Yes Plan: Encourage supplements with each meal. 6 small frequent meals daily encourage increased caloric intake. Daily weights - Plan Summary Plan Summary: Continue IV antibiotics, steroids and nebulizers. Continue current plan. Patient slowly improving possibly need some acute rehab once stable for discharge in the next day or so.
[2017-07-28] MEDS: OXYCODONE-ACETAMINOPHEN 5-325 MG TABLET PO PRN (13:31)
[2017-07-28] MEDS: LEVOFLOXACIN 750 MG/D5W RTU 750 MG/150 ML RTUPB IV SCH (17:21)
[2017-07-28] MEDS: MONTELUKAST SODIUM 10 MG TABLET PO SCH (21:55)
[2017-07-28] MEDS: ALPRAZOLAM 0.5 MG TABLET PO PRN (21:56)
[2017-07-28] MEDS: ARIPIPRAZOLE 5 MG TABLET PO SCH (21:58)
[2017-07-29] MEDS: OXYCODONE HCL IR 5 MG TABLET PO PRN ×2 (01:22→20:38)
[2017-07-29] MEDS: OXYCODONE-ACETAMINOPHEN 5-325 MG TABLET PO PRN ×3 (01:24→20:39)
[2017-07-29] MEDS: IPRATROPIUM/ALBUTEROL 0.5-2.5 MG/3 ML AMPUL NEB SCH ×4 (01:35→19:50)
[2017-07-29] MEDS: VANCOMYCIN HCL 750 MG in DEXTROSE 5%-WATER 250 ML IV SCH ×2 (06:00→14:33)
[2017-07-29] MEDS: LANSOPRAZOLE 30 MG TAB.RAP.DR PO SCH ×2 (06:02→17:28)
[2017-07-29] MEDS: BENZONATATE 100 MG CAPSULE PO SCH ×2 (06:02→14:33)
[2017-07-29] MEDS: LEVOTHYROXINE SODIUM 0.025 MG TABLET PO SCH (06:03)
[2017-07-29] MEDS: HEPARIN SOD (PORCINE) 5,000 UNIT/ML 1 ML SYRINGE SUBCUT SCH ×2 (06:04→14:33)
[2017-07-29] MEDS: BUDESONIDE NEB 0.5 MG/2 ML AMPUL NEB SCH ×2 (08:25→19:50)
[2017-07-29] MEDS: FLUTICASONE NASAL SPRAY 50 MCG/SPRY 120 SPRAY/16 GM NASL SCH (12:23)
[2017-07-29] MEDS: FOLIC ACID/VITAMIN B COMP W-C CAPSULE PO SCH ×2 (12:24→17:28)
[2017-07-29] MEDS: FLUOXETINE HCL 20 MG CAPSULE PO SCH (12:24)
[2017-07-29] MEDS: GUAIFENESIN 600 MG TABLET.SA PO SCH (12:25)
--- NOTE | 2017-07-29 15:40 | PDOC PROGRESS REPORT ---
Subjective Progress Note for:: 07/29/17 Subjective:: Patient seen in bed nurse states she Millo confused today. She was alert and oriented 3 for me. Patient is very thin, frail, anxious. Looks better today but looks older than her stated age. Reason For Visit: SEPSIS, PNEUMONIA, COPD EXACERBATION, WEIGHT LOSS Physical Exam Vital Signs: Temp Pulse Resp BP Pulse Ox 98.6 F 81 20 135/68 H 96 07/29/17 12:04 07/29/17 14:19 07/29/17 14:19 07/29/17 12:04 07/29/17 14:19 Intake & Output 07/28/17 07/29/17 07/30/17 06:59 06:59 06:59 Intake Total 1658 1412 759 Balance 1658 1412 759 Weight 43.3 kg 43.7 kg General appearance: PRESENT: no acute distress, thin Head exam: PRESENT: atraumatic, normocephalic Eye exam: PRESENT: conjunctiva pink, EOMI, PERRLA. ABSENT: scleral icterus Ear exam: PRESENT: normal external ear exam Mouth exam: PRESENT: dry mucosa, moist, tongue midline Neck exam: ABSENT: carotid bruit, JVD, lymphadenopathy, thyromegaly Respiratory exam: PRESENT: accessory muscle use, clear to auscultation zahra, rhonchi, unlabored, wheezes. ABSENT: rales Cardiovascular exam: PRESENT: RRR. ABSENT: diastolic murmur, rubs, systolic murmur Pulses: PRESENT: normal dorsalis pedis pul Vascular exam: PRESENT: normal capillary refill GI/Abdominal exam: PRESENT: normal bowel sounds, soft. ABSENT: distended, guarding, mass, organolmegaly, rebound, tenderness Rectal exam: PRESENT: deferred Extremities exam: PRESENT: full ROM. ABSENT: calf tenderness, clubbing, pedal edema Neurological exam: PRESENT: alert, awake, oriented to person, oriented to place , oriented to time, oriented to situation, CN II-XII grossly intact. ABSENT: motor sensory deficit Psychiatric exam: PRESENT: appropriate affect, normal mood. ABSENT: homicidal ideation, suicidal ideation Skin exam: PRESENT: dry, intact, warm. ABSENT: cyanosis, rash Results Laboratory Results: 07/27/17 04:09 07/27/17 04:39 Impressions: Chest CT 07/24/17 00:00 IMPRESSION: 1. Left basilar airspace consolidation concerning for pneumonia. Continued follow-up recommended to confirm resolution. 2. Scattered groundglass and interstitial opacities along the right upper lobe pleural surface and in the right lower lobe likely related to chronic interstitial lung disease. Follow-up CT in 6 months to document stability recommended. This exam was performed according to our departmental dose-optimization program, which includes automated exposure control, adjustment of the mA and/or kV according to patient size and/or use of iterative reconstruction technique. Modified Barium Swallow 07/25/17 00:00 IMPRESSION: NO EVIDENCE OF PENETRATION OR ASPIRATION. PLEASE SEE SPEECH PATHOLOGIST REPORT FOR OTHER FINDINGS AND RECOMMENDATIONS. Chest X-Ray 07/26/17 00:00 IMPRESSION: COPD. IMPROVEMENT IN THE RIGHT UPPER LOBE INFILTRATE. LEFT LOWER LOBE INFILTRATE APPEARS SLIGHTLY WORSENED AND THERE IS INCREASE IN PLEURAL EFFUSIONS. Assessment & Plan - Diagnosis (1) COPD exacerbation Is this a current diagnosis for this admission?: Yes Plan: Patient seen sitting up on side bed eating much acute distress. Patient states she is ready to quit smoking now and want to use her patches. Encourage to quit. Patient currently does not have any home O2 will evaluate and assess for need for home oxygen. Continue IV antibiotics, patient probably will need home health or acute rehab will have discharge planning to evaluate in a.m. home health need (2) Pneumonia Qualifiers: Pneumonia type: due to unspecified organism Laterality: bilateral Lung location: lower lobe of lung Qualified Code(s): J18.9 - Pneumonia, unspecified organism Is this a current diagnosis for this admission?: Yes Plan: Patient is currently getting IV antibiotics, steroids, nebulizers. Supplemental O2 comfort (3) Tobacco dependency Is this a current diagnosis for this admission?: Yes Plan: Encourage smoking cessation and patient wants to continue using patches outpatient after discharge. (4) Weight loss Is this a current diagnosis for this admission?: Yes Plan: Encourage supplements with each meal. 6 small frequent meals daily encourage increased caloric intake. Daily weights - Plan Summary Plan Summary: Continue same plan of care no acute changes
[2017-07-29] MEDS: LEVOFLOXACIN 750 MG/D5W RTU 750 MG/150 ML RTUPB IV SCH (17:29)
[2017-07-29] MEDS ORDERED: ALPRAZOLAM 0.5 MG TABLET PO PRN (19:30)
[2017-07-30] MEDS: ALPRAZOLAM 0.5 MG TABLET PO PRN ×2 (00:36→21:14)
[2017-07-30] MEDS: GUAIFENESIN 600 MG TABLET.SA PO SCH ×3 (00:37→21:13)
[2017-07-30] MEDS: MONTELUKAST SODIUM 10 MG TABLET PO SCH ×2 (00:37→21:13)
[2017-07-30] MEDS: ARIPIPRAZOLE 5 MG TABLET PO SCH ×2 (00:37→21:13)
[2017-07-30] MEDS: HEPARIN SOD (PORCINE) 5,000 UNIT/ML 1 ML SYRINGE SUBCUT SCH ×4 (00:38→21:14)
[2017-07-30] MEDS: BENZONATATE 100 MG CAPSULE PO SCH ×4 (00:39→21:13)
[2017-07-30] MEDS: VANCOMYCIN HCL 750 MG in DEXTROSE 5%-WATER 250 ML IV SCH ×2 (00:43→06:10)
[2017-07-30] MEDS: FLUTICASONE NASAL SPRAY 50 MCG/SPRY 120 SPRAY/16 GM NASL SCH ×3 (00:43→21:14)
[2017-07-30] MEDS ORDERED: VANCOMYCIN HCL INJ 1000 MG VIAL IV PRN (00:49)
[2017-07-30] MEDS ORDERED: VANCOMYCIN HCL 750 MG in DEXTROSE 5%-WATER 250 ML IV ONE (01:00)
[2017-07-30] MEDS: IPRATROPIUM/ALBUTEROL 0.5-2.5 MG/3 ML AMPUL NEB SCH ×4 (02:07→20:25)
[2017-07-30] MEDS: OXYCODONE HCL IR 5 MG TABLET PO PRN ×2 (02:48→21:13)
[2017-07-30] MEDS: OXYCODONE-ACETAMINOPHEN 5-325 MG TABLET PO PRN ×3 (02:50→17:09)
[2017-07-30] MEDS: LEVOTHYROXINE SODIUM 0.025 MG TABLET PO SCH (06:10)
[2017-07-30] MEDS: LANSOPRAZOLE 30 MG TAB.RAP.DR PO SCH ×2 (06:10→17:09)
[2017-07-30] MEDS: BUDESONIDE NEB 0.5 MG/2 ML AMPUL NEB SCH ×2 (08:06→20:25)
[2017-07-30 08:17] LABS: ABSOLUTE EOSINOPHILS # (AUTO) 0.1 10^3/uL (0.0-0.6); ABSOLUTE LYMPHOCYTES (AUTO) 1.1 10^3/uL (0.5-4.7); ABSOLUTE MONOCYTES (AUTO) 0.5 10^3/uL (0.1-1.4); ABSOLUTE NEUT (AUTO) 3.2 10^3/uL (1.7-8.2); BASOPHILS % (AUTO) 0.7 % (0-2); HEMATOCRIT 32.7 % (36.0-47.0); HEMOGLOBIN 10.9 g/dL (12.0-15.5); LYMPHOCYTES % (AUTO) 23.1 % (13-45); MEAN CORPUSCULAR HEMOGLOBIN 32.9 pg (27.0-33.4); MEAN CORPUSCULAR HGB CONC 33.4 g/dL (32.0-36.0); MEAN CORPUSCULAR VOLUME 99 fl (80-97); MONOCYTES % (AUTO) 9.5 % (3-13); PLATELET COUNT 351 10^3/uL (150-450); RED BLOOD COUNT 3.32 10^6/uL (3.72-5.28); RED CELL DISTRIBUTION WIDTH 14.1 % (11.5-14.0); SEGMENTED NEUTROPHILS % (AUTO) 64.7 % (42-78); TOTAL CELLS COUNTED % (AUTO) 100 %; WHITE BLOOD COUNT 4.9 10^3/uL (4.0-10.5)
[2017-07-30 08:29] LABS: ALANINE AMINOTRANSFERASE 37 U/L (9-52); ALBUMIN 2.7 g/dL (3.5-5.0); ALKALINE PHOSPHATASE 85 U/L (38-126); ANION GAP 6 (5-19); ASPARTATE AMINO TRANSFERASE 24 U/L (14-36); BILIRUBIN,DIRECT 0.2 mg/dL (0.0-0.4); BILIRUBIN,TOTAL 0.2 mg/dL (0.2-1.3); BLOOD UREA NITROGEN 10 mg/dL (7-20); CALCIUM 8.8 mg/dL (8.4-10.2); CARBON DIOXIDE 31 mmol/L (22-30); CHLORIDE 103 mmol/L (98-107); GLUCOSE 84 mg/dL (75-110); POTASSIUM 4.2 mmol/L (3.6-5.0); SODIUM 139.9 mmol/L (137-145); TOTAL PROTEIN 5.6 g/dL (6.3-8.2)
[2017-07-30] MEDS: FOLIC ACID/VITAMIN B COMP W-C CAPSULE PO SCH ×2 (09:01→17:09)
[2017-07-30] MEDS: FLUOXETINE HCL 20 MG CAPSULE PO SCH (09:01)
--- NOTE | 2017-07-30 13:34 | PDOC PROGRESS REPORT ---
Subjective Progress Note for:: 07/30/17 Subjective:: Patient admitted showing signs of improvement. Family at bedside. Continues to be weak with decreased breath sounds on left side. . Reason For Visit: SEPSIS, PNEUMONIA, COPD EXACERBATION, WEIGHT LOSS Physical Exam Vital Signs: Temp Pulse Resp BP Pulse Ox 98.1 F 82 16 112/71 96 07/30/17 07:45 07/30/17 08:08 07/30/17 08:08 07/30/17 07:45 07/30/17 08:08 Intake & Output 07/29/17 07/30/17 07/31/17 06:59 06:59 06:59 Intake Total 1412 2612 Output Total 400 Balance 1412 2212 Weight 43.7 kg General appearance: PRESENT: no acute distress, thin Head exam: PRESENT: atraumatic, normocephalic Eye exam: PRESENT: conjunctiva pink, EOMI, PERRLA. ABSENT: scleral icterus Ear exam: PRESENT: normal external ear exam Mouth exam: PRESENT: moist, tongue midline Neck exam: ABSENT: carotid bruit, JVD, lymphadenopathy, thyromegaly Respiratory exam: PRESENT: decreased breath sounds - left side, prolonged expiratory phas, rales, rhonchi, unlabored. ABSENT: wheezes Cardiovascular exam: PRESENT: RRR. ABSENT: diastolic murmur, rubs, systolic murmur Pulses: PRESENT: normal dorsalis pedis pul Vascular exam: PRESENT: normal capillary refill GI/Abdominal exam: PRESENT: normal bowel sounds, soft. ABSENT: distended, guarding, mass, organolmegaly, rebound, tenderness Rectal exam: PRESENT: deferred Extremities exam: PRESENT: full ROM. ABSENT: calf tenderness, clubbing, pedal edema Neurological exam: PRESENT: alert, awake, oriented to person, oriented to place , oriented to time, oriented to situation, CN II-XII grossly intact. ABSENT: motor sensory deficit Psychiatric exam: PRESENT: appropriate affect, normal mood. ABSENT: homicidal ideation, suicidal ideation Skin exam: PRESENT: dry, intact, warm. ABSENT: cyanosis, rash Results Laboratory Results: 07/30/17 08:05 07/30/17 08:05 07/30/17 07/30/17 08:05 08:05 WBC 4.9 RBC 3.32 L Hgb 10.9 L Hct 32.7 L MCV 99 H MCH 32.9 MCHC 33.4 RDW 14.1 H Plt Count 351 Seg Neutrophils % 64.7 Lymphocytes % 23.1 Monocytes % 9.5 Eosinophils % 2.0 Basophils % 0.7 Absolute Neutrophils 3.2 Absolute Lymphocytes 1.1 Absolute Monocytes 0.5 Absolute Eosinophils 0.1 Absolute Basophils 0.0 Sodium 139.9 Potassium 4.2 Chloride 103 Carbon Dioxide 31 H Anion Gap 6 BUN 10 Creatinine 0.54 Est GFR ( Amer) > 60 Est GFR (Non-Af Amer) > 60 Glucose 84 Calcium 8.8 Total Bilirubin 0.2 AST 24 ALT 37 Alkaline Phosphatase 85 Total Protein 5.6 L Albumin 2.7 L Impressions: Chest CT 07/24/17 00:00 IMPRESSION: 1. Left basilar airspace consolidation concerning for pneumonia. Continued follow-up recommended to confirm resolution. 2. Scattered groundglass and interstitial opacities along the right upper lobe pleural surface and in the right lower lobe likely related to chronic interstitial lung disease. Follow-up CT in 6 months to document stability recommended. This exam was performed according to our departmental dose-optimization program, which includes automated exposure control, adjustment of the mA and/or kV according to patient size and/or use of iterative reconstruction technique. Modified Barium Swallow 07/25/17 00:00 IMPRESSION: NO EVIDENCE OF PENETRATION OR ASPIRATION. PLEASE SEE SPEECH PATHOLOGIST REPORT FOR OTHER FINDINGS AND RECOMMENDATIONS. Chest X-Ray 07/26/17 00:00 IMPRESSION: COPD. IMPROVEMENT IN THE RIGHT UPPER LOBE INFILTRATE. LEFT LOWER LOBE INFILTRATE APPEARS SLIGHTLY WORSENED AND THERE IS INCREASE IN PLEURAL EFFUSIONS. Assessment & Plan - Diagnosis (1) COPD exacerbation Is this a current diagnosis for this admission?: Yes Plan: Patient seen sitting up on side bed eating much acute distress. Patient states she is ready to quit smoking now and want to use her patches. Encourage to quit. Patient currently does not have any home O2 will evaluate and assess for need for home oxygen. Continue IV antibiotics, patient probably will need home health or acute rehab will have discharge planning to evaluate in a.m. home health need. Continue nebs, O2 will attempt to wean. Needs to ambulate in dial. (2) Pneumonia Qualifiers: Pneumonia type: due to unspecified organism Laterality: bilateral Lung location: lower lobe of lung Qualified Code(s): J18.9 - Pneumonia, unspecified organism Is this a current diagnosis for this admission?: Yes Plan: Patient is currently getting IV antibiotics, steroids, nebulizers. Supplemental O2 comfort blood cultures were negative 4 days. Will DC vancomycin. (3) Tobacco dependency Is this a current diagnosis for this admission?: Yes Plan: Encourage smoking cessation and patient wants to continue using nicotine patches outpatient after discharge. (4) Weight loss Is this a current diagnosis for this admission?: Yes Plan: Encourage supplements with each meal. 6 small frequent meals daily encourage increased caloric intake. Daily weights. She is actually had some weight gain - Plan Summary Plan Summary: We will have sales planner to assess home health needs. Suspect patient would benefit from home health for physical therapy, RN, aide.
[2017-07-30] MEDS: NICOTINE 21 MG/24 HR PATCH.TD24 TD PRN (17:10)
[2017-07-30] MEDS: LEVOFLOXACIN 750 MG/D5W RTU 750 MG/150 ML RTUPB IV SCH (17:10)
[2017-07-31] MEDS: OXYCODONE-ACETAMINOPHEN 5-325 MG TABLET PO PRN ×2 (01:13→09:39)
[2017-07-31] MEDS: IPRATROPIUM/ALBUTEROL 0.5-2.5 MG/3 ML AMPUL NEB SCH ×2 (02:22→08:14)
[2017-07-31] MEDS: LANSOPRAZOLE 30 MG TAB.RAP.DR PO SCH (05:19)
[2017-07-31] MEDS: LEVOTHYROXINE SODIUM 0.025 MG TABLET PO SCH (05:19)
[2017-07-31] MEDS: HEPARIN SOD (PORCINE) 5,000 UNIT/ML 1 ML SYRINGE SUBCUT SCH (05:19)
[2017-07-31] MEDS: BENZONATATE 100 MG CAPSULE PO SCH (05:19)
[2017-07-31] MEDS: BUDESONIDE NEB 0.5 MG/2 ML AMPUL NEB SCH (08:14)
[2017-07-31] MEDS: FOLIC ACID/VITAMIN B COMP W-C CAPSULE PO SCH (09:39)
[2017-07-31] MEDS: GUAIFENESIN 600 MG TABLET.SA PO SCH (09:39)
[2017-07-31] MEDS: FLUOXETINE HCL 20 MG CAPSULE PO SCH (09:40)
[2017-07-31] MEDS: FLUTICASONE NASAL SPRAY 50 MCG/SPRY 120 SPRAY/16 GM NASL SCH (09:41)
[2017-07-31 12:10] VITALS: BP 124/71
--- NOTE | 2017-07-31 12:50 | PDOC PROGRESS REPORT ---
Subjective Progress Note for:: 07/31/17 Subjective:: I ready to go home Reason For Visit: SEPSIS, PNEUMONIA, COPD EXACERBATION, WEIGHT LOSS Physical Exam Vital Signs: Temp Pulse Resp BP Pulse Ox 98.1 F 102 H 16 124/71 96 07/31/17 12:07 07/31/17 12:07 07/31/17 12:07 07/31/17 12:07 07/31/17 12:07 Intake & Output 07/30/17 07/31/17 08/01/17 06:59 06:59 06:59 Intake Total 2612 1083 Output Total 400 Balance 2212 1083 General appearance: PRESENT: no acute distress, cooperative, disheveled, thin, well-developed. ABSENT: mild distress, morbidly obese, obese, severe distress Head exam: PRESENT: atraumatic, normocephalic Eye exam: PRESENT: conjunctiva pale, EOMI. ABSENT: conjunctival injection, conjunctiva pink, nystagmus, periorbital swelling, PERRLA Mouth exam: PRESENT: dry mucosa, neck supple, tongue midline. ABSENT: laceration, moist Neck exam: ABSENT: carotid bruit, JVD, lymphadenopathy, thyromegaly, tracheal deviation, tracheostomy Respiratory exam: PRESENT: crackles, decreased breath sounds, prolonged expiratory phas, rhonchi, symmetrical, unlabored. ABSENT: accessory muscle use , chest wall tenderness, clear to auscultation zahra, rales, retraction, stridor, tachypnea, wheezes Cardiovascular exam: PRESENT: RRR, +S1, +S2. ABSENT: irregular rhythm, rubs Pulses: PRESENT: normal radial pulses GI/Abdominal exam: PRESENT: ascites Extremities exam: ABSENT: clubbing, joint swelling Musculoskeletal exam: PRESENT: ambulatory. ABSENT: deformity, dislocation Neurological exam: PRESENT: alert, awake Psychiatric exam: PRESENT: normal mood Skin exam: PRESENT: dry, warm Results Laboratory Results: 07/30/17 08:05 07/30/17 08:05 Impressions: Chest CT 07/24/17 00:00 IMPRESSION: 1. Left basilar airspace consolidation concerning for pneumonia. Continued follow-up recommended to confirm resolution. 2. Scattered groundglass and interstitial opacities along the right upper lobe pleural surface and in the right lower lobe likely related to chronic interstitial lung disease. Follow-up CT in 6 months to document stability recommended. This exam was performed according to our departmental dose-optimization program, which includes automated exposure control, adjustment of the mA and/or kV according to patient size and/or use of iterative reconstruction technique. Modified Barium Swallow 07/25/17 00:00 IMPRESSION: NO EVIDENCE OF PENETRATION OR ASPIRATION. PLEASE SEE SPEECH PATHOLOGIST REPORT FOR OTHER FINDINGS AND RECOMMENDATIONS. Chest X-Ray 07/26/17 00:00 IMPRESSION: COPD. IMPROVEMENT IN THE RIGHT UPPER LOBE INFILTRATE. LEFT LOWER LOBE INFILTRATE APPEARS SLIGHTLY WORSENED AND THERE IS INCREASE IN PLEURAL EFFUSIONS. Assessment & Plan - Diagnosis (1) GERD with apnea Is this a current diagnosis for this admission?: Yes Plan: ppi+mod ba swallow+ reverse tredelenberg (2) Somnolence, daytime, controlled Is this a current diagnosis for this admission?: Yes Plan: sleep study needed (3) COPD exacerbation Is this a current diagnosis for this admission?: No (4) Tobacco dependency Is this a current diagnosis for this admission?: Yes Plan: transdermal nicotine (5) Pneumonia Qualifiers: Pneumonia type: due to unspecified organism Laterality: bilateral Lung location: lower lobe of lung Qualified Code(s): J18.9 - Pneumonia, unspecified organism Is this a current diagnosis for this admission?: Yes Plan: WBC no + cultures thus far,Chest x-ray improved the right upper lobe left lower lobe persistent effusion and PNA
--- NOTE | 2017-07-31 13:21 | PDOC DISCHARGE SUMMARY ---
General - Admit/Disc Date/PCP Admission Date/Primary Care Provider: 07/23/17 22:24 GRICELDA CHRISTIANSON MD Discharge Date: 07/31/17 - Discharge Diagnosis (1) COPD exacerbation Is this a current diagnosis for this admission?: No (2) Pneumonia Is this a current diagnosis for this admission?: Yes (3) Tobacco dependency Is this a current diagnosis for this admission?: Yes - Additional Information Resuscitation Status: Full Code Discharge Diet: As Tolerated Discharge Activity: Activity As Tolerated, Slowly Increase Activity Prescriptions: Benzocaine/Menthol [Chloraseptic Sore Throat Lozenge] 2 each BUCCAL Q4HP PRN # 30 lozenge PRN Reason: Benzonatate [Tessalon Perles 100 mg Capsule] 100 mg PO Q8 #14 capsule Fluticasone Propionate [Flonase Nasal [place] 50 Mcg/[place] 16 gm] 2 spray NASL Q12 #1 spray.pump Guaifenesin [Mucinex Sr 600 mg Tablet.sa] 1,200 mg PO Q12 #30 tablet.sa Ipratropium/Albuterol Sulfate [Duoneb 3 ml Ampul] 3 ml NEB RTQ6 #100 vial.neb Lansoprazole [Prevacid 30 mg Odt Tablet] 30 mg PO BID@0600,1700 #60 tab.rap. Montelukast Sodium [Singulair 10 mg Tablet] 10 mg PO QHS #30 tablet Nicotine [Nicoderm 21 mg/24 Hr Transderm Patch] 1 each TD DAILYP PRN #14 patch.td24 PRN Reason: Oxycodone HCl [Oxy-Ir 5 mg Tablet] 5 mg PO Q6HP PRN #14 tablet PRN Reason: Home Medications: Alprazolam [Xanax 0.5 mg Tablet] 0.5 mg PO Q6HP PRN 09/29/15 Levothyroxine Sodium [Synthroid 0.025 mg Tablet] 25 mcg PO Q6AM 09/29/15 Albuterol Sulfate [Albuterol Sulfate 2.5mg/3 mL] 1 vial NEB QIDP PRN 07/24/17 Alprazolam [Xanax] 1 mg PO QHS 07/24/17 Fluoxetine HCl [Prozac] 40 mg PO DAILY 07/24/17 Folic Acid/Vit B Complex and C [Dialyvite Tablet] 1 tab PO BID 07/24/17 Hydrocodone/Acetaminophen [Hydrocodone-Acetamin 10-325 mg] 1 tab PO Q5HP PRN Acetaminophen [Tylenol 325 mg Tablet] 650 mg PO Q4HP PRN tablet 07/31/17 Albuterol Sulfate [Ventolin 0.083% Neb 2.5 mg/3 mL Ampul] 2.5 mg NEB RTQ6HP PRN vial.neb 07/31/17 Aripiprazole [Abilify 5 mg Tablet] 10 mg PO QHS tablet 07/31/17 Benzocaine/Menthol [Chloraseptic Sore Throat Lozenge] 2 each BUCCAL Q4HP PRN # 30 lozenge 07/31/17 Benzonatate [Tessalon Perles 100 mg Capsule] 100 mg PO Q8 #14 capsule 07/31/17 Fluticasone Propionate [Flonase Nasal [place] 50 Mcg/[place] 16 gm] 2 spray NASL Q12 #1 spray.pump 07/31/17 Guaifenesin [Mucinex Sr 600 mg Tablet.sa] 1,200 mg PO Q12 #30 tablet.sa Ipratropium/Albuterol Sulfate [Duoneb 3 ml Ampul] 3 ml NEB RTQ6 #100 vial.neb Lansoprazole [Prevacid 30 mg Odt Tablet] 30 mg PO BID@0600,1700 #60 tab.max. 07/31/17 Montelukast Sodium [Singulair 10 mg Tablet] 10 mg PO QHS #30 tablet 07/31/17 Nicotine [Nicoderm 21 mg/24 Hr Transderm Patch] 1 each TD DAILYP PRN #14 patch.td24 07/31/17 Oxycodone HCl [Oxy-Ir 5 mg Tablet] 5 mg PO Q6HP PRN #14 tablet 07/31/17 History of Present Illness History of Present Illness: Per H&P by Dr. Pratt: HARPER DWYER is a 57 year old female with past medical history of COPD, bipolar depression, chronic pain, tobacco dependence, and a 30 pound weight loss in 12 months. Resents with 48 hours of rhinorrhea and a nonproductive cough severe shortness of breath and subjective fever. In the emergency room she is found to be severely tachypneic, toxic in appearance with a chest x-ray of bilateral infiltrates and bandemia. She admits pleuritic chest pain, denies infectious contacts or recent change in medications. She received empiric antibiotics and albuterol and is referred to the hospitalist for admission. Hospital Course Hospital Course: The patient was admitted with respiratory distress secondary to a COPD exacerbation with bilateral pneumonias. Pulmonology was consulted. She was placed on broad-spectrum antibiotics pending cultures. She received supportive care with Mucinex, nebulizer treatments, incentive spirometry with flutter valve , supplemental oxygen, and p.o. steroids. Barium swallow study was completed without evidence of penetration or aspiration. She gradually improved and it is 7 day course of Levaquin while inpatient. Discharge she is maintaining her oxygen saturations while being on room air. He is discharged to home with home health nursing, home health aide, and PT/OT services. Physical Exam Vital Signs: Temp Pulse Resp BP Pulse Ox 98.1 F 102 H 16 124/71 96 07/31/17 12:07 07/31/17 12:07 07/31/17 12:07 07/31/17 12:07 07/31/17 12:07 Intake & Output 07/30/17 07/31/17 08/01/17 06:59 06:59 06:59 Intake Total 2612 1083 Output Total 400 Balance 2212 1083 General appearance: PRESENT: no acute distress, thin, well-developed Head exam: PRESENT: atraumatic, normocephalic Eye exam: PRESENT: conjunctiva pink, EOMI, PERRLA. ABSENT: scleral icterus Ear exam: PRESENT: normal external ear exam Mouth exam: PRESENT: moist, tongue midline Neck exam: ABSENT: carotid bruit, JVD, lymphadenopathy, thyromegaly Respiratory exam: PRESENT: clear to auscultation zahra, decreased breath sounds - Bibasilar, symmetrical, unlabored. ABSENT: crackles, rales, rhonchi, wheezes Cardiovascular exam: PRESENT: RRR, +S1, +S2. ABSENT: diastolic murmur, rubs, systolic murmur Pulses: PRESENT: normal dorsalis pedis pul Vascular exam: PRESENT: normal capillary refill GI/Abdominal exam: PRESENT: normal bowel sounds, soft. ABSENT: distended, guarding, mass, organolmegaly, rebound, tenderness Rectal exam: PRESENT: deferred Extremities exam: PRESENT: full ROM. ABSENT: calf tenderness, clubbing, pedal edema Neurological exam: PRESENT: alert, awake, oriented to person, oriented to place , oriented to time, oriented to situation, CN II-XII grossly intact. ABSENT: motor sensory deficit Psychiatric exam: PRESENT: appropriate affect, normal mood. ABSENT: homicidal ideation, suicidal ideation Skin exam: PRESENT: dry, intact, warm. ABSENT: cyanosis, rash Results Laboratory Results: 07/30/17 08:05 07/30/17 08:05 Impressions: Chest CT 07/24/17 00:00 IMPRESSION: 1. Left basilar airspace consolidation concerning for pneumonia. Continued follow-up recommended to confirm resolution. 2. Scattered groundglass and interstitial opacities along the right upper lobe pleural surface and in the right lower lobe likely related to chronic interstitial lung disease. Follow-up CT in 6 months to document stability recommended. This exam was performed according to our departmental dose-optimization program, which includes automated exposure control, adjustment of the mA and/or kV according to patient size and/or use of iterative reconstruction technique. Modified Barium Swallow 07/25/17 00:00 IMPRESSION: NO EVIDENCE OF PENETRATION OR ASPIRATION. PLEASE SEE SPEECH PATHOLOGIST REPORT FOR OTHER FINDINGS AND RECOMMENDATIONS. Chest X-Ray 07/26/17 00:00 IMPRESSION: COPD. IMPROVEMENT IN THE RIGHT UPPER LOBE INFILTRATE. LEFT LOWER LOBE INFILTRATE APPEARS SLIGHTLY WORSENED AND THERE IS INCREASE IN PLEURAL EFFUSIONS. Qualifiers PATEINT BEING DISCHARGED WITH ANY OF THE FOLLOWING DIAGNOSIS?: No Plan Discharge Plan: Discharge to home with home health services. Follow-up with primary care provider within 1 week. Time Spent: Less than 30 Minutes
== END 2017-07-31 12:50 | disposition home health service (06) | DRG 871 ==
LOC: ER 17:57 → EH 22:24 → 3N 07-24 02:23
PROVIDERS: ADMIT Internal Medicine; ATTEND Internal Medicine
PROC: 3E0234Z Introduction of Serum, Toxoid and Vaccine into Muscle, Percutaneous Approach (ICD-10-PCS; principal; 2017-07-31)
DX: A41.9 Sepsis, unspecified organism (principal); J96.21 Acute and chronic respiratory failure with hypoxia; J18.1 Lobar pneumonia, unspecified organism; J44.1 Chronic obstructive pulmonary disease with (acute) exacerbation; J44.0 Chronic obstructive pulmonary disease with (acute) lower respiratory infection; F11.20 Opioid dependence, uncomplicated; F13.20 Sedative, hypnotic or anxiolytic dependence, uncomplicated; Z68.1 Body mass index [BMI] 19.9 or less, adult; E87.6 Hypokalemia; E03.9 Hypothyroidism, unspecified; K21.9 Gastro-esophageal reflux disease without esophagitis; R63.4 Abnormal weight loss; M19.90 Unspecified osteoarthritis, unspecified site; G89.29 Other chronic pain; F31.9 Bipolar disorder, unspecified; G40.909 Epilepsy, unspecified, not intractable, without status epilepticus; F17.210 Nicotine dependence, cigarettes, uncomplicated; Z79.899 Other long term (current) drug therapy; Z23 Encounter for immunization
CPT/HCPCS: 36415; 71010; 71020; 71250; 74230; 80048; 80053; 80202; 81001; 82553; 82803; 83605; 83735; 83880; 84484; 85025; 87040; 87070; 87205; 90686; 93005; 93010; 94640; 94667; 94668; 94761; 94799; 99285; G8996-GN; G8997-GN; G8998-GN; J1644; J1956; J2405; J3370; J3480; J3490; J7030; J7060; J7620

== ENCOUNTER → 2019-06-24 | Outpatient (CLI) | payer MEDICARE, MEDICAID ==
--- NOTE | 2019-06-24 16:47 | RADIOLOGY REPORT (SQ) ---
EXAM DESCRIPTION: CHEST PA/LATERAL COMPLETED DATE/TIME: 06/24/2019 4:33 pm REASON FOR STUDY: ACUTE BRONCHITIS, UNSPECIFIED,WHEEZING,COUGH COMPARISON: 07/26/2017 EXAM PARAMETERS: NUMBER OF VIEWS: two views TECHNIQUE: Digital Frontal and Lateral radiographic views of the chest acquired. RADIATION DOSE: NA LIMITATIONS: none FINDINGS: LUNGS AND PLEURA: The lungs are hyperexpanded. There is no infiltrate, effusion, or mass. MEDIASTINUM AND HILAR STRUCTURES: No masses or contour abnormalities. HEART AND VASCULAR STRUCTURES: Heart normal size. No evidence for failure. BONES: Scoliosis. HARDWARE: None in the chest. OTHER: No other significant finding. IMPRESSION: Chronic lung changes with no acute cardiopulmonary findings. Scoliosis. TECHNICAL DOCUMENTATION: JOB ID: [id number] [employer]- All Rights Reserved Reading location - IP/workstation name: [email or web address]
== END ==
LOC: OD 16:14
PROVIDERS: ATTEND Family Medicine
DX: J20.9 Acute bronchitis, unspecified (principal); R05 Cough; R06.2 Wheezing
CPT/HCPCS: 71046

== ENCOUNTER 2019-10-06 22:05 | Emergency (ER) | payer MEDICARE, MEDICAID ==
[2019-10-06] MEDS ORDERED: ACETAMINOPHEN 325 MG TABLET PO ONE (23:49)
--- NOTE | 2019-10-06 23:56 | ER Document Report ---
ED Medical Screen (RME) - General Chief Complaint: Arm Pain Stated Complaint: FALL/RIGHT ARM INJURY Time Seen by Provider: 10/06/19 23:41 Primary Care Provider: GRICELDA CHRISTIANSON MD [Primary Care Provider] - Follow up as needed TRAVEL OUTSIDE OF THE [place] IN LAST 30 DAYS: No - HPI Notes: 10/06/19 23:49 Patient presents after falling on her right hand after taking out the trash ear lier today. She did not hit her head or lose consciousness. Currently she complains of pain in her wrist. She denies any previous injury to that arm. She also denies any blood thinners. I have treated and performed a rapid initial assessment of this patient. A comprehensive ED assessment and evaluation of the patient, analysis of test results and completion of medical decision making process will be conducted by additional ED providers. PHYSICAL EXAMINATION: GENERAL: Well-appearing, well-nourished and in no acute distress. A&Ox4. Answers questions appropriately. Rt Wrist: ttp along the distal radius. No tenderness to palpation in proximal radius, fingers are nontender to palpation. Mild swelling and ecchymosis along the lateral dorsal aspect of the wrist. Decreased active ROM in wrist, but she is able to make a fist and has full elbow ROM - Related Data Allergies/Adverse Reactions: Penicillins Allergy (Severe, Verified 10/06/19 23:39) BREATHING DIFFICULTY Home Medications: Patient does not know her medications, difficult historian Past Medical History - Past Medical History Cardiac Medical History: Denies: Hx Pulmonary Embolism Pulmonary Medical History: Reports: Hx COPD Denies: Hx Asthma, Hx Bronchitis, Hx Pneumonia, Hx Respiratory Failure, Hx Sleep Apnea, Hx Tuberculosis Neurological Medical History: Reports: Hx Migraine, Hx Seizures - last seizure approx 2.5 years ago (unknown etiology). Denies: Hx Cerebrovascular Accident, Hx Parkinson's Disease Endocrine Medical History: Reports: Hx Hypothyroidism. Denies: Hx Graves' Disease, Hx Hyperthyroidism Renal/ Medical History: Denies: Hx Peritoneal Dialysis Malignancy Medical History: Reports: Hx Skin Cancer. Denies: Hx Lung Cancer GI Medical History: Reports: Hx Gastroesophageal Reflux Disease - OTC meds PRN. Denies: Hx Crohn's Disease, Hx Hiatal Hernia, Hx Irritable Bowel, Hx Liver Failure, Hx Pancreatitis, Hx Ulcer, Hx Ulcerative Colitis Musculoskeltal Medical History: Reports Hx Arthritis, Denies Hx Fibromyalgia, Denies Hx Multiple Sclerosis, Denies Hx Muscular Dystrophy, Denies Hx Systemic Lupus Erythematosus Skin Medical History: Reports Hx Psoriasis Psychiatric Medical History: Reports: Hx Bipolar Disorder - Dx'ed approx 4 years ago, Hx Depression Denies: Hx Dementia, Hx Post Traumatic Stress Disorder, Hx Schizophrenia Traumatic Medical History: Reports: Hx Fractures - LT wrist, cast application on ly. Denies: Hx Traumatic Brain Injury Infectious Medical History: Denies: Hx HIV Past Surgical History: Reports: Hx Appendectomy - @ age [age] years old, Hx Hysterectomy, Hx Orthopedic Surgery. Denies: Hx Bowel Surgery, Hx Section, Hx Cholecystectomy, Hx Colostomy, Hx Coronary Artery Bypass Graft, Hx Gastric Bypass Surgery, Hx Herniorrhaphy, Hx Mastectomy, Hx Pacemaker, Hx Tonsillectomy, Hx Tubal Ligation - Immunizations Hx Diphtheria, Pertussis, Tetanus Vaccination: No Physical Exam - Vital signs Vitals: Temp Pulse Resp BP Pulse Ox 98.1 F 76 16 177/94 H 99 10/06/19 22:10 10/06/19 22:10 10/06/19 22:10 10/06/19 22:10 10/06/19 22:10 Course - Vital Signs Vital signs: Temp Pulse Resp BP Pulse Ox 98.1 F 76 16 177/94 H 99 10/06/19 22:10 10/06/19 22:10 10/06/19 22:10 10/06/19 22:10 10/06/19 22:10 Doctor's Discharge - Discharge Referrals: GRICELDA CHRITSIANSON MD [Primary Care Provider] - Follow up as needed
--- NOTE | 2019-10-07 00:35 | RADIOLOGY REPORT (SQ) ---
CLINICAL INDICATION: pain s/p fall. . TECHNIQUE: 3 view(s) were obtained of the right wrist. COMPARISON: None. FINDINGS: No acute displaced fracture is identified of the wrist. Alignment appears anatomic. Age-appropriate osteoarthritis. Surrounding soft tissues are unremarkable. IMPRESSION: No evidence of acute displaced fracture of the wrist.
--- NOTE | 2019-10-07 01:27 | ER Document Report ---
ED General - General Chief Complaint: Arm Pain Stated Complaint: FALL/RIGHT ARM INJURY Time Seen by Provider: 10/06/19 23:41 Primary Care Provider: GRICELDA CHRISTIANSON MD [Primary Care Provider] - Follow up as needed SANKET RAMSAY DO [ACTIVE STAFF] - Follow up as needed Mode of Arrival: Ambulatory Information source: Patient TRAVEL OUTSIDE OF THE [place] IN LAST 30 DAYS: No - HPI Onset: Yesterday - evening Onset/Duration: Sudden Quality of pain: Achy, Pressure Severity: Moderate Pain Level: 2 Associated symptoms: None Exacerbated by: Movement - of her right wrist/hand Relieved by: Remaining still Similar symptoms previously: No Recently seen / treated by doctor: No Notes: 59 year old female with a history of Hypothyroidism, GERD, Migraine Headaches here for pain and swelling in her right wrist which started yesterday evening after she tripped and fell while brining her garbage out. The patient has swelling and bruising on the dorsal aspect of her right wrist/hand and she says it hurts the most over her 2nd and 3rd metacarpals. The patient is able to move her fingers and wrist in all directions but she has pain doing so given the swelling in her hand/wrist. - Related Data Allergies/Adverse Reactions: Penicillins Allergy (Severe, Verified 10/06/19 23:39) BREATHING DIFFICULTY Home Medications: Patient does not know her medications, difficult historian Past Medical History - Social History Smoking Status: Current Every Day Smoker Frequency of alcohol use: None Drug Abuse: None Family History: COPD, Hyperlipidemia, Hypertension, Malignancy Patient has suicidal ideation: No Patient has homicidal ideation: No - Past Medical History Cardiac Medical History: Denies: Hx Pulmonary Embolism Pulmonary Medical History: Reports: Hx COPD Denies: Hx Asthma, Hx Bronchitis, Hx Pneumonia, Hx Respiratory Failure, Hx Sleep Apnea, Hx Tuberculosis Neurological Medical History: Reports: Hx Migraine, Hx Seizures - last seizure approx 2.5 years ago (unknown etiology). Denies: Hx Cerebrovascular Accident, Hx Parkinson's Disease Endocrine Medical History: Reports: Hx Hypothyroidism. Denies: Hx Graves' Disease, Hx Hyperthyroidism Renal/ Medical History: Denies: Hx Peritoneal Dialysis Malignancy Medical History: Reports: Hx Skin Cancer. Denies: Hx Lung Cancer GI Medical History: Reports: Hx Gastroesophageal Reflux Disease - OTC meds PRN. Denies: Hx Crohn's Disease, Hx Hiatal Hernia, Hx Irritable Bowel, Hx Liver Levi lure, Hx Pancreatitis, Hx Ulcer, Hx Ulcerative Colitis Musculoskeletal Medical History: Reports Hx Arthritis, Denies Hx Fibromyalgia, Denies Hx Multiple Sclerosis, Denies Hx Muscular Dystrophy, Denies Hx Systemic Lupus Erythematosus Skin Medical History: Reports Hx Psoriasis Psychiatric Medical History: Reports: Hx Bipolar Disorder - Dx'ed approx 4 years ago, Hx Depression Denies: Hx Dementia, Hx Post Traumatic Stress Disorder, Hx Schizophrenia Traumatic Medical History: Reports: Hx Fractures - LT wrist, cast application only. Denies: Hx Traumatic Brain Injury Infectious Medical History: Denies: Hx HIV Past Surgical History: Reports: Hx Appendectomy - @ age [age] years old, Hx Hysterectomy, Hx Orthopedic Surgery. Denies: Hx Bowel Surgery, Hx Section, Hx Cholecystectomy, Hx Colostomy, Hx Coronary Artery Bypass Graft, Hx Gastric Bypass Surgery, Hx Herniorrhaphy, Hx Mastectomy, Hx Pacemaker, Hx Tonsillectomy, Hx Tubal Ligation - Immunizations Hx Diphtheria, Pertussis, Tetanus Vaccination: No Hx Pneumococcal Vaccination: 10/16/11 Review of Systems - Review of Systems Constitutional: No symptoms reported EENT: No symptoms reported Cardiovascular: No symptoms reported Respiratory: No symptoms reported Gastrointestinal: No symptoms reported Genitourinary: No symptoms reported Female Genitourinary: No symptoms reported Musculoskeletal: Other - right wrist pain, swelling. right 2nd and 3rd metacarpal pain Skin: Other - swelling and bruising of affected area on right wrist/hand Hematologic/Lymphatic: No symptoms reported Neurological/Psychological: No symptoms reported -: Yes All other systems reviewed and negative Physical Exam - Vital signs Vitals: Temp Pulse Resp BP Pulse Ox 98.1 F 76 16 177/94 H 99 10/06/19 22:10 10/06/19 22:10 10/06/19 22:10 10/06/19 22:10 10/06/19 22:10 - Notes Notes: GENERAL: Well-appearing, well-nourished and in no acute distress. HEAD: Atraumatic, normocephalic. EYES: Pupils equal round and reactive to light, extraocular movements intact, sclera anicteric, conjunctiva are normal. ENT: TMs normal, nares patent, oropharynx clear without exudates. Moist mucous membranes. NECK: Normal range of motion, supple without lymphadenopathy or JVD. LUNGS: Breath sounds clear to auscultation bilaterally and equal. No wheezes rales or rhonchi. HEART: Regular rate and rhythm without murmurs, rubs or gallops. ABDOMEN: Soft, nontender, normoactive bowel sounds. No guarding, no rebound. No masses appreciated. EXTREMITIES: Right wrist with swelling/hemotoma (3cm in diameter) proxmial to the 1st digit. Normal range of motion, no pitting or edema. No clubbing or cyanosis. Hard to assess if there is pain directly over the snuff box since the swollen area encompasses this area. NEUROLOGICAL: Cranial nerves II through XII grossly intact. Normal speech, normal gait. PSYCH: Normal mood, normal affect. SKIN: Warm, Dry, normal turgor, no rashes or lesions noted. Course - Re-evaluation Re-evalutation: 10/07/19 01:32 The patient has a hematoma/contusion on the dorsum of her right wrist/hand just proximal to the 1st and 2nd digtis. The patient has the most pain over her 2nd and 3rd metacarpal on palpation. Patient may have snuff box tenderness or she may have pain from the swelling and hematoma since it covers the snuff box. Patient's xrays show no acute process. Patient given a wrist splint and she was told to follow up with Orthopedics. - Vital Signs Vital signs: Temp Pulse Resp BP Pulse Ox 97.9 F 72 18 184/98 H 97 10/07/19 01:43 10/07/19 01:43 10/07/19 01:43 10/07/19 01:43 10/07/19 01:43 - Diagnostic Test Radiology reviewed: Image reviewed, Reports reviewed Discharge - Discharge Clinical Impression: Right wrist sprain Qualifiers: Encounter type: initial encounter Qualified Code(s): S63.501A - Unspecified sprain of right wrist, initial encounter Condition: Stable Disposition: HOME, SELF-CARE Instructions: Wrist Sprain ([facility]) Additional Instructions: Use tylenol and motrin for pain. Ice your wrist/hand to help with swelling. Use the wrist splint as instructed. Follow up with Dr. Ramsay or another Orthopedic Surgeon if your wrist and hand continue to bother you in the days to come. Referrals: GRICELDA CHRISTIANSON MD [Primary Care Provider] - Follow up as needed SANKET RAMSAY DO [ACTIVE STAFF] - Follow up as needed
--- NOTE | 2019-10-07 02:13 | RADIOLOGY REPORT (SQ) ---
EXAM DESCRIPTION: XR HAND 3 OR MORE VIEWS COMPLETED DATE/TME: 10/07/2019 01:22 CLINICAL HISTORY: 59 years, Female, fall COMPARISON: None. NUMBER OF VIEWS: TECHNIQUE: LIMITATIONS: None. FINDINGS: 3 views of the right hand were obtained. No fracture or dislocation. There is osteopenia. IMPRESSION: No fracture or dislocation. copyright 2010 [employer]- All Rights Reserved
[2019-10-07 02:37] VITALS: BP 180/90
== END 2019-10-07 02:35 | disposition home or self-care (01) ==
LOC: ER 22:05
DX: S63.501A Unspecified sprain of right wrist, initial encounter (principal); M79.601 Pain in right arm; W01.0XXA Fall on same level from slipping, tripping and stumbling without subsequent striking against object, initial encounter; Y93.E9 Activity, other interior property and clothing maintenance; Y92.008 Other place in unspecified non-institutional (private) residence as the place of occurrence of the external cause; F17.200 Nicotine dependence, unspecified, uncomplicated; E03.9 Hypothyroidism, unspecified; K21.9 Gastro-esophageal reflux disease without esophagitis; Z88.0 Allergy status to penicillin; Z90.710 Acquired absence of both cervix and uterus
CPT/HCPCS: 99283; 73130; 73110; A9270